=== PATIENT | male | born 1945 | race Caucasian/White ===

== ENCOUNTER 2019-08-13 15:38 | Observation (INO) | payer MEDICARE ==
[2019-08-13] MEDS ORDERED: SODIUM CHLORIDE 0.9% 500 ML 500 ML IV ONE (16:04)
--- NOTE | 2019-08-13 16:16 | ED ---
General Adult HPI - General Chief complaint: Altered Mental Status Stated complaint: altered mental status Time Seen by Provider: 08/13/19 15:50 Source: patient, RN notes reviewed, old records reviewed Mode of arrival: EMS Limitations: altered mental status - History of Present Illness Initial comments: 74-year-old male presents for evaluation of dizziness, lightheadedness, and confusion. Patient is alert and oriented 3, complaining of lightheadedness. States he has not been eating or drinking well. He currently lives alone, his is been admitted recently to the hospital. He denies fever. He denies vomiting or diarrhea. Denies pain complaints. Denies focal numbness or weakness. Patient is alert and oriented but he is somewhat confused,. Uncertain of the time course of his confusion. EMS reported it is likely been several days. - Related Data Home Medications Medication Instructions Recorded Confirmed Multivitamins, Thera [Multivitamin 1 tab PO DAILY 08/13/19 08/13/19 (formulary)] Pioglitazone HCl/Metformin HCl 1 tab PO DAILY 08/13/19 08/13/19 [Pioglitazone-Metformin 15-850] Pravastatin Sodium [Pravachol] 20 mg PO DAILY 08/13/19 08/13/19 Scopolamine [Scopolamine 1 MG/72 1 patch TOPICAL Q72H 08/13/19 08/13/19 HR patch] Allergies Allergy/AdvReac Type Severity Reaction Status Date / Time erythromycin base Allergy Verified 08/13/19 17:23 Sulfa (Sulfonamide Allergy Verified 08/13/19 17:23 Antibiotics) Review of Systems ROS Statement: Those systems with pertinent positive or pertinent negative responses have been documented in the HPI. ROS Other: All systems not noted in ROS Statement are negative. Past Medical History Past Medical History: Diabetes Mellitus History of Any Multi-Drug Resistant Organisms: None Reported Past Surgical History: Unable to Obtain Past Psychological History: No Psychological Hx Reported Smoking Status: Never smoker Past Alcohol Use History: None Reported Past Drug Use History: None Reported General Exam Limitations: altered mental status General appearance: alert, in no apparent distress Head exam: Present: atraumatic, normocephalic Eye exam: Present: normal appearance, PERRL ENT exam: Present: mucous membranes dry Neck exam: Present: normal inspection. Absent: tenderness, meningismus Respiratory exam: Present: normal lung sounds bilaterally. Absent: respiratory distress, wheezes, rales Cardiovascular Exam: Present: regular rate, normal rhythm GI/Abdominal exam: Present: soft. Absent: distended Extremities exam: Present: normal inspection, normal capillary refill. Absent: pedal edema Neurological exam: Present: alert, oriented X3, CN II-XII intact. Absent: motor sensory deficit Psychiatric exam: Present: normal affect, normal mood Skin exam: Present: warm, dry, intact. Absent: cyanosis, diaphoretic Course Vital Signs 08/13/19 08/13/19 15:47 17:00 Temperature 98.2 F Pulse Rate 96 90 Respiratory 18 18 Rate Blood Pressure 142/77 138/80 O2 Sat by Pulse 95 96 Oximetry - Reevaluation(s) Reevaluation #1: 08/13/19 18:22 I was able to speak with the patient's daughter who states he's been working in the yard a lot and has had some diarrhea. This may be contributing to his dehydration. EKG Findings - EKG Comments: EKG Findings:: EKG: Sinus rhythm with first-degree AV block, left axis, low voltage, rate of 95, WV interval 270, QRS duration 94, QTC 439, no ST segment elevation. Medical Decision Making - Medical Decision Making 74-year-old male with confusion, dehydration. Head CT showing concern for frontal dementia, no itch cream hemorrhage or mass effect per chest x-ray concerning for CHF and mild pulmonary vascular congestion, patient clinically has no peripheral edema, no shortness of breath, no hypoxia. He has a normal C BC, CMP shows elevated creatinine at 1.5 with no baseline. Magnesium is 1.5 this is replaced. Urinalysis negative for infection. Patient will be admitted for IV hydration, reevaluation. Case discussed with Dr. Donaldson who will admit. - Lab Data Result diagrams: 08/13/19 15:58 08/13/19 15:58 Lab Results 08/13/19 08/13/19 08/13/19 Range/Units 15:58 15:58 15:58 WBC 8.3 (3.8-10.6) k/uL RBC 4.78 (4.30-5.90) m/uL Hgb 15.5 (13.0-17.5) gm/dL Hct 46.6 (39.0-53.0) % MCV 97.5 (80.0-100.0) fL MCH 32.4 (25.0-35.0) pg MCHC 33.2 (31.0-37.0) g/dL RDW 13.8 (11.5-15.5) % Plt Count 152 (150-450) k/uL Neutrophils % 70 % Lymphocytes % 21 % Monocytes % 6 % Eosinophils % 2 % Basophils % 0 % Neutrophils # 5.8 (1.3-7.7) k/uL Lymphocytes # 1.7 (1.0-4.8) k/uL Monocytes # 0.5 (0-1.0) k/uL Eosinophils # 0.1 (0-0.7) k/uL Basophils # 0.0 (0-0.2) k/uL PT 10.1 (9.0-12.0) sec INR 1.0 (<1.2) APTT 22.7 (22.0-30.0) sec VBG pH (7.31-7.41) VBG pCO2 (37-51) mmHg VBG HCO3 (24-28) mmol/L Sodium 134 L (137-145) mmol/L Potassium 4.1 (3.5-5.1) mmol/L Chloride 102 (98-107) mmol/L Carbon Dioxide 20 L (22-30) mmol/L Anion Gap 12 mmol/L BUN 18 (9-20) mg/dL Creatinine 1.52 H (0.66-1.25) mg/dL Est GFR (CKD-EPI)AfAm 52 (>60 ml/min/1.73 sqM) Est GFR (CKD-EPI)NonAf 45 (>60 ml/min/1.73 sqM) Glucose 104 H (74-99) mg/dL Calcium 10.9 H (8.4-10.2) mg/dL Magnesium 1.5 L (1.6-2.3) mg/dL Total Bilirubin 1.0 (0.2-1.3) mg/dL AST 31 (17-59) U/L ALT 17 (4-49) U/L Alkaline Phosphatase 76 (38-126) U/L Creatine Kinase 109 (55-170) U/L Total Protein 7.4 (6.3-8.2) g/dL Albumin 4.5 (3.5-5.0) g/dL Urine Color Urine Appearance (Clear) Urine pH (5.0-8.0) Ur Specific Sel[place] (1.001-1.035) Urine Protein (Negative) Urine Glucose (UA) (Negative) Urine Ketones (Negative) Urine Blood (Negative) Urine Nitrite (Negative) Urine Bilirubin (Negative) Urine Urobilinogen (<2.0) mg/dL Ur Leukocyte Esterase (Negative) 08/13/19 08/13/19 Range/Units 15:58 17:10 WBC (3.8-10.6) k/uL RBC (4.30-5.90) m/uL Hgb (13.0-17.5) gm/dL Hct (39.0-53.0) % MCV (80.0-100.0) fL MCH (25.0-35.0) pg MCHC (31.0-37.0) g/dL RDW (11.5-15.5) % Plt Count (150-450) k/uL Neutrophils % % Lymphocytes % % Monocytes % % Eosinophils % % Basophils % % Neutrophils # (1.3-7.7) k/uL Lymphocytes # (1.0-4.8) k/uL Monocytes # (0-1.0) k/uL Eosinophils # (0-0.7) k/uL Basophils # (0-0.2) k/uL PT (9.0-12.0) sec INR (<1.2) APTT (22.0-30.0) sec VBG pH 7.43 H (7.31-7.41) VBG pCO2 34 L (37-51) mmHg VBG HCO3 23 L (24-28) mmol/L Sodium (137-145) mmol/L Potassium (3.5-5.1) mmol/L Chloride (98-107) mmol/L Carbon Dioxide (22-30) mmol/L Anion Gap mmol/L BUN (9-20) mg/dL Creatinine (0.66-1.25) mg/dL Est GFR (CKD-EPI)AfAm (>60 ml/min/1.73 sqM) Est GFR (CKD-EPI)NonAf (>60 ml/min/1.73 sqM) Glucose (74-99) mg/dL Calcium (8.4-10.2) mg/dL Magnesium (1.6-2.3) mg/dL Total Bilirubin (0.2-1.3) mg/dL AST (17-59) U/L ALT (4-49) U/L Alkaline Phosphatase (38-126) U/L Creatine Kinase (55-170) U/L Total Protein (6.3-8.2) g/dL Albumin (3.5-5.0) g/dL Urine Color Yellow Urine Appearance Clear (Clear) Urine pH 5.5 (5.0-8.0) Ur Specific [place] 1.008 (1.001-1.035) Urine Protein Trace H (Negative) Urine Glucose (UA) Negative (Negative) Urine Ketones Negative (Negative) Urine Blood Negative (Negative) Urine Nitrite Negative (Negative) Urine Bilirubin Negative (Negative) Urine Urobilinogen <2.0 (<2.0) mg/dL Ur Leukocyte Esterase Negative (Negative) Disposition Clinical Impression: Altered mental status, Delirium due to general medical condition, Dehydration Disposition: ADMITTED IP TO THIS [facility] Condition: Stable Is patient prescribed a controlled substance at d/c from ED?: No Referrals: None,Stated [REFERRING] - 1-2 days Decision to Admit Reason: Admit from EC Decision Date: 08/13/19 Decision Time: 18:23
[2019-08-13 16:32] LABS: VBG PH 7.43 (7.31-7.41)
[2019-08-13 16:33] LABS: Basophils % (A) 0 %; Eosinophils # (A) 0.1 k/uL (0-0.7); Eosinophils % (A) 2 %; HCT 46.6 % (39.0-53.0); HGB 15.5 gm/dL (13.0-17.5); Lymphocytes # (A) 1.7 k/uL (1.0-4.8); Lymphocytes % (A) 21 %; MCH 32.4 pg (25.0-35.0); MCHC 33.2 g/dL (31.0-37.0); MCV 97.5 fL (80.0-100.0); Mean Platelet Volume 7.2; Monocytes # (A) 0.5 k/uL (0-1.0); Monocytes % (A) 6 %; Neutrophils # (A) 5.8 k/uL (1.3-7.7); Neutrophils % (A) 70 %; Platelet Count 152 k/uL (150-450); RBC 4.78 m/uL (4.30-5.90); RDW 13.8 % (11.5-15.5); WBC 8.3 k/uL (3.8-10.6)
--- NOTE | 2019-08-13 16:50 | XR ---
EXAMINATION TYPE: XR chest 2V DATE OF EXAM: 08/13/2019 COMPARISON: NONE HISTORY: Altered mental status and weakness. TECHNIQUE: Frontal and lateral views of the chest are obtained. FINDINGS: There is chronic parenchymal changes bilaterally suspected without suspicious focal air sp dhaval opacity, pleural effusion, or pneumothorax seen. The cardiac silhouette size is mildly enlarged. Spine is straightened on lateral view. IMPRESSION: Cardiomegaly with suspected chronic parenchymal changes. Cannot exclude mild underlying interstitial edema. Correlate clinically for fluid overload state and/or CHF exacerbation
[2019-08-13 16:51] LABS: Partial Thromboplastin Time 22.7 sec (22.0-30.0); Prothrombin Time 10.1 sec (9.0-12.0)
--- NOTE | 2019-08-13 16:52 | CT ---
EXAMINATION TYPE: CT brain wo con DATE OF EXAM: 08/13/2019 HISTORY: Altered mental status. CT DLP: 1099.4 mGycm. Automated Exposure Control for Dose Reduction was Utilized. TECHNIQUE: CT scan of the head is performed without contrast. COMPARISON: None. FINDINGS: There is no acute intracranial hemorrhage or midline shift identified. There is diffuse v entricular and sulcal prominence consistent with diffuse cerebral atrophy greatest over bilateral fro ntal and temporal lobes. There is low-attenuation in the periventricular white matter consistent wit h chronic small vessel ischemic change. The globes are intact and the visualized sinuses are clear. Persistent anterior metopic suture incidentally noted. IMPRESSION: No acute intracranial hemorrhage or midline shift. There is moderate diffuse cerebral a trophy greatest over bilateral frontal and temporal lobes and mild chronic small vessel ischemic bauman ge noted. Correlate for possible frontal temporal dementia.
[2019-08-13 17:16] LABS: Albumin 4.5 g/dL (3.5-5.0); Calcium 10.9 mg/dL (8.4-10.2); Magnesium 1.5 mg/dL (1.6-2.3); Potassium 4.1 mmol/L (3.5-5.1); Total Protein 7.4 g/dL (6.3-8.2)
[2019-08-13 17:49] LABS: Appearance,Urine Clear (Clear); Bilirubin,Urine Negative (Negative); Blood,Urine Negative (Negative); Color,Urine Yellow; Glucose,Urine (UA) Negative (Negative); Ketones,Urine Negative (Negative); Leukocyte Esterase,Urine Negative (Negative); Nitrite,Urine Negative (Negative); PH, Urine 5.5 (5.0-8.0); Protein,Urine Trace (Negative); Specific Gravity,Urine 1.008 (1.001-1.035); Urobilinogen,Urine <2.0 mg/dL (<2.0)
[2019-08-13] MEDS ORDERED: MAGNESIUM SULFATE-D5W PMX 1 GM in DEXTROSE/WATER 1 100ML.BAG IVPB ONE (18:02)
[2019-08-13] MEDS ORDERED: NALOXONE 0.4 MG/ML 1 ML VIAL IV PRN (18:21)
[2019-08-13] MEDS ORDERED: ACETAMINOPHEN TAB 325 MG TAB PO PRN (18:21)
[2019-08-13] MEDS: SODIUM CHLORIDE 0.9% 1,000 ML IV SCH (19:19)
[2019-08-13] MEDS ORDERED: cloNIDine HCL 0.2 MG TAB PO PRN (19:55)
[2019-08-13 21:43] LABS: Glucose,Whole Blood 153 mg/dL (75-99)
[2019-08-13] MEDS: INSULIN ASPART (NovoLOG) 100 UNIT/ML VIAL SQ SCH (22:20)
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
[2019-08-14] MEDS: ASPIRIN 81 MG PO SCH ×2 (01:06→09:39)
[2019-08-14] MEDS: HEPARIN SODIUM,PORCINE 5,000 UNIT/ML 1 ML VIAL SQ SCH ×4 (01:06→23:45)
[2019-08-14] MEDS: TAMSULOSIN 0.4 MG CAP.ER.24H PO SCH ×2 (01:06→19:39)
[2019-08-14] MEDS: SODIUM CHLORIDE 0.9% 1,000 ML IV SCH ×3 (06:51→23:46)
[2019-08-14 07:05] LABS: Glucose,Whole Blood 109 mg/dL (75-99)
[2019-08-14 07:14] LABS: Basophils % (A) 1 %; Eosinophils # (A) 0.2 k/uL (0-0.7); Eosinophils % (A) 2 %; HCT 46.4 % (39.0-53.0); HGB 14.9 gm/dL (13.0-17.5); Lymphocytes # (A) 1.8 k/uL (1.0-4.8); Lymphocytes % (A) 23 %; MCH 31.8 pg (25.0-35.0); MCV 99.5 fL (80.0-100.0); Macrocytosis Slight; Mean Platelet Volume 6.9; Monocytes # (A) 0.4 k/uL (0-1.0); Monocytes % (A) 5 %; Neutrophils # (A) 5.4 k/uL (1.3-7.7); Neutrophils % (A) 69 %; Platelet Count 148 k/uL (150-450); RBC 4.66 m/uL (4.30-5.90); WBC 7.8 k/uL (3.8-10.6)
[2019-08-14 07:19] LABS: Calcium 9.8 mg/dL (8.4-10.2); Magnesium 1.7 mg/dL (1.6-2.3); Potassium 4.3 mmol/L (3.5-5.1)
[2019-08-14] MEDS: INSULIN ASPART (NovoLOG) 100 UNIT/ML VIAL SQ SCH ×4 (07:22→21:46)
--- NOTE | 2019-08-14 08:10 | US ---
EXAMINATION TYPE: US carotid duplex BILAT DATE OF EXAM: 08/14/2019 COMPARISON: NONE CLINICAL HISTORY: 74-year-old male Confusion TECHNIQUE: Carotid duplex ultrasound examination. Direct Doppler criteria was utilized. FINDINGS: EXAM MEASUREMENTS: RIGHT: Peak Systolic Velocity (PSV) cm/sec ----- Right CCA: 72.4 ----- Right ICA: 91.1 ----- Right ECA: 81.4 ICA/CCA ratio: 1.3 RIGHT: End Diastole cm/sec ----- Right CCA: 14.2 ----- Right ICA: 27.4 ----- Right ECA: 0.0 LEFT: Peak Systolic Velocity (PSV) cm/sec ----- Left CCA: 87.9 ----- Left ICA: 67.1 ----- Left ECA: 117.7 ICA/CCA ratio: 0.8 LEFT: End Diastole cm/sec ----- Left CCA: 10.2 ----- Left ICA: 14.7 ----- Left ECA: 6.3 VERTEBRALS (direction of flow): Right Vertebral: Antegrade Left Vertebral: Antegrade Anesthesiologist/Physician notes: No significant stenosis seen IMPRESSION: No hemodynamically significant internal carotid artery stenosis on either side. Criteria for Assigning % of Stenosis / Diameter reduction (Estimation based on the indirect measurements of the internal carotid artery velocities (ICA PSV). 1. Normal (no stenosis)=ICA PSV < 125 cm/s: ratio < 2.0: ICA EDV<40 cm/s. 2. Less than 50% stenosis=ICA PSV < 125 cm/s: ratio < 2.0: ICA EDV<40 cm/s. 3. 50 to 69% stenosis=ICA PSV of 125 to 230 cm/s: ration 2.0 ? 4.0: ICA EDV 40-100 cm/s. 4. Greater than 70% stenosis to near occlusion= ICA PSV > 230 cm/s: ratio > 4.0: ICA EDV > 100 cm/s. 5. Near occlusion= ICA PSV velocities may be low or undetectable: variable ratio and ICA EDV. 6. Total occlusion=unable to detect flow.
[2019-08-14] MEDS: PRAVASTATIN SODIUM 20 MG TAB PO SCH (09:39)
--- NOTE | 2019-08-14 11:00 | ECHOF ---
Referral Reason:r/o thrombi, confusion , vascular dementia MEASUREMENTS -------- HEIGHT: 170.2 cm WEIGHT: 85.3 kg BP: 132/71 RVIDd: 3.1 cm (< 3.3) IVSd: 1.5 cm (0.6 - 1.1) LVIDd: 3.7 cm (3.9 - 5.3) LVPWd: 1.5 cm (0.6 - 1.1) IVSs: 1.8 cm LVIDs: 2.4 cm LVPWs: 2.1 cm LA Diam: 3.4 cm (2.7 - 3.8) LAESV Index (A-L): 16.80 ml/m Ao Diam: 3.5 cm (2.0 - 3.7) AV Cusp: 2.4 cm (1.5 - 2.6) MV EXCURSION: 16.312 mm (> 18.000) MV EF SLOPE: 166 mm/s (70 - 150) EPSS: 0.3 cm MV E Prieto: 0.76 m/s MV DecT: 176 ms MV A Prieto: 1.18 m/s MV E/A Ratio: 0.64 FINDINGS -------- This was a technically good study. The left ventricular size is normal. There is moderate concentric left ventricular hypertrophy. O verall left ventricular systolic function is normal with, an EF between 60 - 65 %. The right ventricle is normal in size. Normal LA size by volume 22+/-6 ml/m2. The right atrium is normal in size. Interatrial and interventricular septum intact. There is mild aortic valve sclerosis. Mild mitral annular calcification present. No regurgitation noted The pulmonic valve is normal. The aortic root size is normal. Normal inferior vena cava with normal inspiratory collapse consistent with estimated right atrial pre ssure of 5 mmHg. There is no pericardial effusion. CONCLUSIONS -------- 1. This was a technically good study. 2. The left ventricular size is normal. 3. There is moderate concentric left ventricular hypertrophy. 4. Overall left ventricular systolic function is normal with, an EF between 60 - 65 %. 5. The right ventricle is normal in size. 6. Normal LA size by volume 22+/-6 ml/m2. 7. The right atrium is normal in size. 8. Interatrial and interventricular septum intact. 9. There is mild aortic valve sclerosis. 10. Mild mitral annular calcification present. 11. No regurgitation noted 12. The pulmonic valve is normal. 13. The aortic root size is normal. 14. Normal inferior vena cava with normal inspiratory collapse consistent with estimated right atrial pressure of 5 mmHg. 15. There is no pericardial effusion. TAPE SEWING MACHINE OPERATOR: Rachel Grimaldo RDCS
--- NOTE | 2019-08-14 12:11 | MR ---
EXAMINATION TYPE: MR brain wo con DATE OF EXAM: 08/14/2019 COMPARISON: CT brain from yesterday. HISTORY: Confusion , altered mental status on admission one day earlier. Question vascular dementia. TECHNIQUE: Multiplanar, multisequence imaging of the brain and brainstem is performed without IV cont rast. FINDINGS: Diffusion weighted images demonstrate no evidence of a recent infarct or other diffusion abnormality. There is no worrisome extra-axial fluid collection. There is diffuse ventricular and sulcal prominenc e redemonstrated. Findings redemonstrated is slightly more prominent over bilateral frontal lobes. So me areas of T2 hyperintensity in the periventricular white matter are noted. Midline structures demonstrate normal morphology. The craniocervical junction appears within normal limits. Normal vascular flow voids are present. The visualized sinuses are clear and the globes are i ntact. IMPRESSION: 1. No MRI evidence for recent infarct. 2. Fairly moderate diffuse cerebral atrophy slightly more prominent over bilateral frontal lobes with mild chronic small vessel ischemic change is redemonstrated.
[2019-08-14 12:31] LABS: Glucose,Whole Blood 112 mg/dL (75-99)
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
[2019-08-14 17:04] LABS: Glucose,Whole Blood 127 mg/dL (75-99)
[2019-08-14 20:12] LABS: Glucose,Whole Blood 133 mg/dL (75-99)
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
[2019-08-15 07:02] LABS: Glucose,Whole Blood 111 mg/dL (75-99)
[2019-08-15] MEDS: INSULIN ASPART (NovoLOG) 100 UNIT/ML VIAL SQ SCH ×4 (07:15→21:17)
[2019-08-15] MEDS: ASPIRIN 81 MG PO SCH (08:09)
[2019-08-15] MEDS: SODIUM CHLORIDE 0.9% 1,000 ML IV SCH ×2 (08:09→21:18)
[2019-08-15] MEDS: HEPARIN SODIUM,PORCINE 5,000 UNIT/ML 1 ML VIAL SQ SCH ×3 (08:09→23:35)
[2019-08-15] MEDS: PRAVASTATIN SODIUM 20 MG TAB PO SCH (08:09)
[2019-08-15 08:15] LABS: HCT 41.6 % (39.0-53.0); HGB 14.2 gm/dL (13.0-17.5); MCH 34.1 pg (25.0-35.0); MCV 100.2 fL (80.0-100.0); Macrocytosis Slight; Mean Platelet Volume 7.5; Platelet Count 141 k/uL (150-450); RBC 4.16 m/uL (4.30-5.90); WBC 7.1 k/uL (3.8-10.6)
[2019-08-15 08:20] LABS: Calcium 9.2 mg/dL (8.4-10.2); Magnesium 1.5 mg/dL (1.6-2.3)
[2019-08-15] MEDS: MAGNESIUM SULFATE-D5W PMX 1 GM in DEXTROSE/WATER 1 100ML.BAG IVPB SCH ×4 (10:13→15:23)
[2019-08-15 11:52] LABS: Lead, Blood 1.1 ug/dL (<5.0)
[2019-08-15 11:58] LABS: Glucose,Whole Blood 133 mg/dL (75-99)
--- NOTE | 2019-08-15 12:54 | P.PN ---
Subjective Progress Note Date: 08/15/19 Patient offers no new complaints. Still with some fluctuating mental status. Sometimes more oriented sometimes not. Offers no complaints. Objective - Vital Signs Vital signs: Vital Signs Temp 97.7 F 08/15/19 07:31 Pulse 80 08/15/19 07:31 Resp 16 08/15/19 07:31 BP 147/76 08/15/19 07:31 Pulse Ox 94 L 08/15/19 07:31 Intake & Output 08/14/19 08/15/19 08/15/19 18:59 06:59 18:59 Intake Total 2089 Balance 2089 Intake: Intake, IV Titration 900 Amount Sodium Chloride 0.9% 1, 900 000 ml @ 120 mls/hr IV . Q8H20M [facility] Rx#:[id number] Oral 1190 Other: Voiding Method Bedside Commode # Voids 2 1 - Exam Patient is alert and awake, well oriented. Patient knows it is July 2019 and that he is in [facility] in [facility]. Patient had difficulty recalling name of the [place] has to be prompted. Speech and language functions are normal. Rest of the examination is nonfocal. - Labs CBC & Chem 7: 08/15/19 06:38 08/15/19 06:38 Labs: Abnormal Lab Results - Last 24 Hours (Table) 08/14/19 08/14/19 08/15/19 Range/Units 16:52 20:11 06:38 RBC 4.16 L (4.30-5.90) m/uL MCV 100.2 H (80.0-100.0) fL Plt Count 141 L (150-450) k/uL Chloride (98-107) mmol/L Creatinine (0.66-1.25) mg/dL Glucose (74-99) mg/dL POC Glucose (mg/dL) 127 H 133 H (75-99) mg/dL Magnesium (1.6-2.3) mg/dL 08/15/19 08/15/19 08/15/19 Range/Units 06:38 06:59 11:56 RBC (4.30-5.90) m/uL MCV (80.0-100.0) fL Plt Count (150-450) k/uL Chloride 111 H (98-107) mmol/L Creatinine 1.26 H (0.66-1.25) mg/dL Glucose 116 H (74-99) mg/dL POC Glucose (mg/dL) 111 H 133 H (75-99) mg/dL Magnesium 1.5 L (1.6-2.3) mg/dL Assessment and Plan Assessment: * Altered mental status, likely due to delirium, now resolved. Patient's mentation appears fairly intact at this time. Apparently patient has received scopolamine patch on 08/12/2019, and altered mental status occurred on 08/13/2019. No evidence of prior cognitive impairment. * Diabetes Plan: * Patient's examination is nonfocal. All neurological workup is negative. * Patient's TSH is normal 2.99, B12 389. Serum lead is normal. Await serum mercury and arsenic, and carbon monoxide level. * Patient's delirium was likely related to use of scopolamine patch, which patient states was given to "enhance the effect of hearing". Scopolamine patch was removed late evening on 08/13/2019. * May follow up with neurologist as an outpatient, only if there is persistent concerns about memory disturbance. * Neurologically clear for discharge, when medically cleared.
--- NOTE | 2019-08-15 14:32 | P.PN ---
Subjective Progress Note Date: 08/15/19 Principal diagnosis: altered mentation Patient is a 74 yo CM with DM on oral medications well controlled, HTN and mild COPD who was brought in by EMS for altered mentation. In the emergency department he underwent an extensive evaluation. Initial vitals were stable. CXR mild interstitial edema, Head CT with cerebral atrophy in bilateral frontal and temporal lobes and mild chronic small vessel ischemic changes. Labs showed elevated Cr, Hypercalcemia, and hypomagnesemia he was started on IVF and magnesium replacement. He was placed in observation for further monitoring. Echo: normal EF, moderate LVH, no significant valvular disease Carotids US: no hemodynamically significant stenosis MRI: fairly moderate diffuse cerebral atrophy more prominent over bilateral frontal lobes with chronic small vessel ischemic changes He continues to be confused and unable to answer high level function. He also is impulsive and has had a sitter overnight. Patient seen and examined at bedside. He states that he is feeling well. Denies any chest pain, shortness of breath, nausea, and vomiting. Objective - Vital Signs Vital signs: Vital Signs Temp 97.7 F 08/15/19 07:31 Pulse 80 08/15/19 07:31 Resp 16 08/15/19 07:31 BP 147/76 08/15/19 07:31 Pulse Ox 94 L 08/15/19 07:31 Intake & Output 08/14/19 08/15/19 08/15/19 18:59 06:59 18:59 Intake Total 2089 Balance 2089 Intake: Intake, IV Titration 900 Amount Sodium Chloride 0.9% 1, 900 000 ml @ 120 mls/hr IV . Q8H20M [facility] Rx#:[id number] Oral 1190 Other: Voiding Method Bedside Commode # Voids 2 1 - Exam General: non toxic, no distress, appears at stated age Derm: warm, dry Head: atraumatic, normocephalic, symmetric Eyes: EOMI, no lid lag, anicteric sclera Mouth: no lip lesion, mucus membranes moist Cardiovascular: S1S2 reg, no murmur, positive posterior tibial pulse bilateral, Lungs: Decreased bs bilateral, no rhonchi, no rales , no accessory muscle use Abdominal: soft, nontender to palpation, no guarding, no appreciable organomegaly Ext: no gross muscle atrophy, no edema, no contractures Neuro: CN II-XI grossly intact, no focal neuro deficits Psych: Alert, oriented, overly happy/ expressive Oriented to person, place, year, month, gets confused and answer year to being asked the date. He is able to follow commands, unable to follow along with continued conversation and stay on topic, also answers questions amado ppropriately. - Labs CBC & Chem 7: 08/15/19 06:38 08/15/19 06:38 Labs: Abnormal Lab Results - Last 24 Hours (Table) 08/14/19 08/14/19 08/14/19 Range/Units 12:19 16:52 20:11 RBC (4.30-5.90) m/uL MCV (80.0-100.0) fL Plt Count (150-450) k/uL Chloride (98-107) mmol/L Creatinine (0.66-1.25) mg/dL Glucose (74-99) mg/dL POC Glucose (mg/dL) 112 H 127 H 133 H (75-99) mg/dL Magnesium (1.6-2.3) mg/dL 08/15/19 08/15/19 08/15/19 Range/Units 06:38 06:38 06:59 RBC 4.16 L (4.30-5.90) m/uL MCV 100.2 H (80.0-100.0) fL Plt Count 141 L (150-450) k/uL Chloride 111 H (98-107) mmol/L Creatinine 1.26 H (0.66-1.25) mg/dL Glucose 116 H (74-99) mg/dL POC Glucose (mg/dL) 111 H (75-99) mg/dL Magnesium 1.5 L (1.6-2.3) mg/dL Assessment and Plan Assessment: Acute toxic metabolic encephalopthy - hold scopolamine patch - Echo: normal EF, moderate LVH, no significant valvular disease - Carotids US: no hemodynamically significant stenosis - MRI: fairly moderate diffuse cerebral atrophy more prominent over bilateral frontal lobes with chronic small vessel ischemic changes - D/W neurology - Lead, arsnic, mercury, CO levels are pending - B12, TSH normal - supportive care, Social work consult saw daughter - will need outpatient neurology follow up - pt/ot/ speech evaluation - Of note the patient has been taking numerous amounts of over the counter supplements Hypomagnesemia - replace and recheck in AM DM 2 - Hold metformin/pioglitazone - SSI - Follow BS - Check A1C HLD - statin COPD without exacerbation - prn albuterol Intentional weight loss Hypomagnesemia, resolved hypercalcemia, resolved ALBERTO, mostly likely prerenal due to dehydration, improved DVT prophylaxis: Heparin SC Discussed with: Patient, nursing, daughter, Dr. Pool Anticipated discharge: in AM Anticipated discharge place: home with home health A total of 60 minutes was spent on the care of this complex patient more than 50% of the time was spent in counseling and care coordination.
[2019-08-15 16:58] LABS: Glucose,Whole Blood 149 mg/dL (75-99)
[2019-08-15] MEDS: TAMSULOSIN 0.4 MG CAP.ER.24H PO SCH (18:31)
[2019-08-15 20:54] LABS: Glucose,Whole Blood 105 mg/dL (75-99)
[2019-08-16] MEDS: SODIUM CHLORIDE 0.9% 1,000 ML IV SCH ×2 (03:03→10:22)
[2019-08-16 07:49] LABS: Glucose,Whole Blood 110 mg/dL (75-99)
[2019-08-16] MEDS: INSULIN ASPART (NovoLOG) 100 UNIT/ML VIAL SQ SCH ×2 (08:31→11:43)
[2019-08-16 09:07] LABS: Calcium 8.7 mg/dL (8.4-10.2); Magnesium 1.8 mg/dL (1.6-2.3); Potassium 3.7 mmol/L (3.5-5.1)
[2019-08-16] MEDS: ASPIRIN 81 MG PO SCH (10:21)
[2019-08-16] MEDS: HEPARIN SODIUM,PORCINE 5,000 UNIT/ML 1 ML VIAL SQ SCH (10:21)
[2019-08-16] MEDS: PRAVASTATIN SODIUM 20 MG TAB PO SCH (10:21)
[2019-08-16] MEDS ORDERED: Magnesium Replacement Protocol 1 EACH MISC MISCELLANE PRN (11:00)
[2019-08-16] MEDS: MAGNESIUM SULFATE-D5W PMX 1 GM in DEXTROSE/WATER 1 100ML.BAG IVPB SCH ×2 (11:35→13:15)
[2019-08-16 11:45] LABS: Glucose,Whole Blood 105 mg/dL (75-99)
--- NOTE | 2019-08-16 14:23 | P.DS ---
Providers Date of admission: 08/14/19 11:39 Expected date of discharge: 08/16/19 Attending physician: Zenia Donaldson, DO Consults: 08/13/19 19:56 Consult Physician Routine Consulting Provider: Janna Pool Consult Reason/Comments: ams Do you want consulting provider notified?: Yes, Notify in am Primary care physician: Adam Damian [facility] Course: 74 year old male with hypertension and DM who was brought in by his daughter because of worsening confusion. According to his daughter he was not acting like himself, was not making sense of what he was saying and was tangential in his thoughts. On the day of admission patient spent all his morning working on the yard. Reportedly he did not keep himself hydrated. He reported feeling unsteady and dizzy when he stands up. No weakness. No pain or sob. Of note patient was prescribed scopolamine patch to help with his peripheral neuropathy by his PCP. In the ED, CT brain showed no acute pathology, but suggestive of chornic small vessel disease. labs showed elevated creatinine, (no baseline) and low magnesium. He was started on IV fluids for presumed dehydration and the magnesium was replaced. During the hospitalization he underwent extensive workup including MRI of the brain, carotid Doppler and echocardiogram and all of those studies came back unremarkable. Labs including vitamin B12 and lead levels were normal. Heavy metal screen workup including arsenic level, mercury level was pending at the time of this reporting. He was seen by neurology who thought that chronic dementia component might be contributing to the acute worsening mental status induced by scopolamine. Scopolamine patch was discontinued upon admission his mental status did improve towards his baseline. Today he is doing fine. He will be discharged home in stable condition. I instructed patient not to use scopolamine patch in the future. He was also instructed to follow up with neurology in the office. Time for discharge 35 minutes. Patient Condition at Discharge: Stable Plan - Discharge Summary Discharge Rx Participant: Yes New Discharge Prescriptions: Continue Pravastatin Sodium [Pravachol] 20 mg PO DAILY Multivitamins, Thera [Multivitamin (formulary)] 1 tab PO DAILY Pioglitazone HCl/Metformin HCl [Pioglitazone-Metformin 15-850] 1 tab PO DAILY Discontinued Scopolamine [Scopolamine 1 MG/72 HR patch] 1 patch TOPICAL Q72H Discharge Medication List Multivitamins, Thera [Multivitamin (formulary)] 1 tab PO DAILY 08/13/19 [History] Pioglitazone HCl/Metformin HCl [Pioglitazone-Metformin 15850] 1 tab PO DAILY 08/13/19 [History] Pravastatin Sodium [Pravachol] 20 mg PO DAILY 08/13/19 [History] Follow up Appointment(s)/Referral(s): [facility], [NON-STAFF] - None,Stated [REFERRING] - 1-2 days Ibrahima Sotelo DO [STAFF PHYSICIAN] - 1 Week (office closed at time of discharge. Please call to make appointment)
[2019-08-16 14:48] VITALS: BP 146/82; PULSE 91; RESP 18; TEMP 98.2
[2019-08-16 23:02] LABS: Hemoglobin A1C 6.1 % (4.0-6.0)
[2019-08-17 09:38] LABS: Arsenic Whole Blood <3 mcg/L (< 23); Mercury Whole Blood <2 mcg/L (< 11)
== END 2019-08-16 15:20 | disposition home health service (06) ==
LOC: EC 15:38 → 4SSUR 18:21 → OBSVTOIN 08-14 11:39 → INTOOBSV 08-14 11:39 → UNDODISIN 08-16 15:20
PROVIDERS: ADMIT Internal Medicine; ATTEND Internal Medicine
DX: G92 Toxic encephalopathy (principal); E83.42 Hypomagnesemia; E11.42 Type 2 diabetes mellitus with diabetic polyneuropathy; E78.5 Hyperlipidemia, unspecified; J44.9 Chronic obstructive pulmonary disease, unspecified; I67.82 Cerebral ischemia; N17.9 Acute kidney failure, unspecified; E83.52 Hypercalcemia; E86.0 Dehydration; R19.7 Diarrhea, unspecified; F43.10 Post-traumatic stress disorder, unspecified; J84.89 Other specified interstitial pulmonary diseases; G31.9 Degenerative disease of nervous system, unspecified; I44.0 Atrioventricular block, first degree; I11.9 Hypertensive heart disease without heart failure; E66.9 Obesity, unspecified; Z68.29 Body mass index [BMI] 29.0-29.9, adult; Z03.818 Encounter for observation for suspected exposure to other biological agents ruled out; Z79.82 Long term (current) use of aspirin; Z79.899 Other long term (current) drug therapy; Z88.1 Allergy status to other antibiotic agents; Z88.2 Allergy status to sulfonamides; Z98.890 Other specified postprocedural states; Z87.39 Personal history of other diseases of the musculoskeletal system and connective tissue; Z87.891 Personal history of nicotine dependence; Z81.8 Family history of other mental and behavioral disorders
CPT/HCPCS: 96361 ×4; 96366 ×2; 96372 ×3; 96365; 99285; 36415; 93005; 93306; 97162; 97166; 92523; 80053; 80048 ×3; 82607; 82375; 82550; 82803; 83655; 83735 ×4; 84443; 85025 ×2; 85027; 85610; 85730; 81003; 82175; 83825; 86780; 83036; 71046; 93880; 70450; 70551; G0378 ×4; U0003; J1644 ×3; J3475 ×3; 96360

== ENCOUNTER → 2019-08-20 | Outpatient (CLI) | payer MEDICARE ==
--- NOTE | 2019-08-20 14:43 | US ---
EXAMINATION TYPE: US venous doppler duplex LE DATE OF EXAM: 08/20/2019 2:30 PM COMPARISON: NONE CLINICAL HISTORY: R60.0 EDEMA. Left knee pain SIDE PERFORMED: Bilateral TECHNIQUE: The lower extremity deep venous system is examined utilizing real time linear array sonog genaro with graded compression, doppler sonography and color-flow sonography. VESSELS IMAGED: External Iliac Vein (EIV) Common Femoral Vein Deep Femoral Vein Greater Saphenous Vein * Femoral Vein Popliteal Vein Small Saphenous Vein * Proximal Calf Veins (* superficial vessels) Right Leg: Negative for DVT Left Leg: Negative for DVT In the left pop fossa, there is an anechoic area visualized measuring 2.7 x 1.4 x 3.1 cm IMPRESSION: No evidence for DVT at this time.
== END | disposition home or self-care (01) ==
LOC: RADUSWWP 14:01
PROVIDERS: ATTEND Family Medicine
DX: R60.0 Localized edema (principal)
CPT/HCPCS: 93970

== ENCOUNTER → 2019-12-30 | Outpatient (CLI) | payer MEDICARE ==
[2019-12-30 16:23] LABS: Folate, Serum >24.0 ng/mL
[2019-12-30 17:19] LABS: Calcium 10.3 mg/dL (8.7-10.3); Creatine Kinase 60 U/L (35-257); Magnesium 1.7 mg/dL (1.5-2.4)
[2019-12-31 12:58] LABS: Albumin 3.96 g/dL (3.80-4.90); Gamma Globulin 0.84 g/dL (0.70-1.50)
[2020-01-01 05:57] LABS: Vit B1(Thiamine) 139 ug/L (38-122)
== END | disposition home or self-care (01) ==
LOC: LABWHC1 08:51
PROVIDERS: ATTEND Psychiatry & Neurology Pain Medicine
DX: G89.4 Chronic pain syndrome (principal); Z79.899 Other long term (current) drug therapy
CPT/HCPCS: 36415; 82306; 82310; 82550; 82607; 82746; 83036; 83519; 83735; 84165; 84207; 84425; 84439; 84443; 84446; 84481; 84590; 84591; 84597

== ENCOUNTER 2020-10-28 14:34 | Inpatient (IN) | payer MEDICARE ==
[2020-10-28 15:18] LABS: Basophils % (A) 0 %; Eosinophils # (A) 0.5 k/uL (0-0.7); Eosinophils % (A) 5 %; HCT 43.6 % (39.0-53.0); Lymphocytes # (A) 1.1 k/uL (1.0-4.8); Lymphocytes % (A) 11 %; MCH 33.3 pg (25.0-35.0); MCHC 34.4 g/dL (31.0-37.0); MCV 96.6 fL (80.0-100.0); Mean Platelet Volume 6.9; Monocytes # (A) 0.5 k/uL (0-1.0); Monocytes % (A) 5 %; Neutrophils # (A) 7.2 k/uL (1.3-7.7); Neutrophils % (A) 77 %; Platelet Count 251 k/uL (150-450); RBC 4.51 m/uL (4.30-5.90); RDW 14.5 % (11.5-15.5); WBC 9.4 k/uL (3.8-10.6)
--- NOTE | 2020-10-28 15:19 | ED ---
General Adult HPI - General Chief complaint: Shortness of Breath Stated complaint: PEGGY Time Seen by Provider: 10/28/20 14:49 Source: patient, EMS Mode of arrival: EMS Limitations: no limitations - History of Present Illness Initial comments: Dictation was produced using [employer] dictation software. please excuse any grammatical, word or spelling errors. Chief Complaint: 75-year-old male presents with hypoxia and shortness of breath History of Present Illness: 75-year-old male who was sent here from the urgent care for shortness of breath times several weeks, cough and hypoxia. Patient states he feels fine at the bedside. Over the last couple weeks she's been having some dyspnea. Denies any pain complaints. He has been having cough productive of white sputum. He has history of COPD tobacco use. Denies any history of heart issues. Patient allegedly was hypoxic at the urgent care and to the 80 percents. EMS was called patient is brought to the emergency department. Patient was placed on nonrebreather by EMS with improvement of his oxygen. He feels fine at the bedside. Denies any leg swelling. No history of DVT or PE. The ROS documented in this emergency department record has been reviewed and confirmed by me. Those systems with pertinent positive or negative responses have been documented in the HPI. All other systems are other negative and/or noncontributory. PHYSICAL EXAM: General Impression: Alert and oriented x3, not in acute distress HEENT: Normocephalic atraumatic, extra-ocular movements intact, pupils equal and reactive to light bilaterally, mucous membranes moist. Cardiovascular: Heart regular rate and rhythm Chest: Able to complete full sentences, no retractions, no tachypnea, lungs c lear to auscultation bilaterally Abdomen: abdomen soft, non-tender, non-distended, no organomegaly Musculoskeletal: Pulses present and equal in all extremities, no peripheral edema Motor: no focal deficits noted Neurological: CN II-XII grossly intact, no focal motor or sensory deficits noted Skin: Intact with no visualized rashes Psych: Normal affect and mood ED course: 75-year-old male presents emergency department for several days of shortness of breath and alleged hypoxia at the urgent care. Vital signs upon arrival shows findings within acceptable limits. He is 91% on 2 L nasal cannula . He is well-appearing at the bedside. He has no pain complaints. No clinical exam findings to suggest pulmonary embolism. EKG interpretation: Ventricular rate 86, sinus tachycardia, appears to be evidence of heart block. P waves march out and regular intervals appeared to QRS complexes. Concerning for A-V dissociation. Laboratory evaluation obtained per it CBC unremarkable. Blood gas shows pH is 7.5 with pCO2 of 28 pO2 of 81 bicarb of 21. Metabolic panel shows slightly e levated renal markers. Lactic acidosis 3.2, troponin 0.041. Brain natruretic peptide is 1720. Rotavirus negative. Chest x-ray concerning for acute edema versus infiltrate. Patient observed in the emergency department for approximately 2 hours and 30 minutes. Patient reevaluated at bedside at 4:50 PM. He is well-appearing. No complaints of chest pain. States that he feels a little short winded. This concern that patient's elevated troponin is from acute kidney injury versus troponin leak. There is concern of heart failure. Patient given 40 mg of by mouth Lasix. He is well-appearing. His clinical presentation does not suggest acute coronary syndrome. Patient will be admitted with consultation to cardiology. Discussed patient case with [facility] group was willing to accept patients care. - Related Data Home Medications Medication Instructions Recorded Confirmed Multivitamins, Thera [Multivitamin 1 tab PO DAILY 08/13/19 10/28/20 (formulary)] Pioglitazone HCl/Metformin HCl 1 tab PO BID 08/13/19 10/28/20 [Pioglitazone-Metformin 15-132] Albuterol Inhaler [Ventolin Hfa 2 puff INHALATION RT-Q4H PRN 10/28/20 10/28/20 Inhaler] Allergies Allergy/AdvReac Type Severity Reaction Status Date / Time Sulfa (Sulfonamide Allergy Severe Anaphylaxis Verified 10/28/20 14:41 Antibiotics) erythromycin base Allergy Unknown Unknown Verified 10/28/20 14:41 Mushroom Allergy Anaphylaxis Verified 10/28/20 14:41 Review of Systems ROS Statement: Those systems with pertinent positive or pertinent negative responses have been documented in the HPI. ROS Other: All systems not noted in ROS Statement are negative. Past Medical History Past Medical History: COPD, Diabetes Mellitus, Hypertension Additional Past Medical History / Comment(s): Neuropathy History of Any Multi-Drug Resistant Organisms: None Reported Past Surgical History: Orthopedic Surgery Additional Past Surgical History / Comment(s): Right Rotator Cuff repair Past Anesthesia/Blood Transfusion Reactions: No Reported Reaction Past Psychological History: PTSD Smoking Status: Former smoker Past Alcohol Use History: None Reported Past Drug Use History: None Reported - Past Family History family Additional Family Medical History / Comment(s): Alzheimer General Exam Limitations: no limitations Course Vital Signs 10/28/20 10/28/20 14:41 14:51 Pulse Rate 86 Respiratory 18 Rate Blood Pressure 136/102 O2 Sat by Pulse 91 L 91 L Oximetry Medical Decision Making - Lab Data Result diagrams: 10/28/20 14:59 10/28/20 14:59 Lab Results 10/28/20 10/28/20 10/28/20 Range/Units 14:59 14:59 14:59 WBC 9.4 (3.8-10.6) k/uL RBC 4.51 (4.30-5.90) m/uL Hgb 15.0 (13.0-17.5) gm/dL Hct 43.6 (39.0-53.0) % MCV 96.6 (80.0-100.0) fL MCH 33.3 (25.0-35.0) pg MCHC 34.4 (31.0-37.0) g/dL RDW 14.5 (11.5-15.5) % Plt Count 251 (150-450) k/uL MPV 6.9 Neutrophils % 77 % Lymphocytes % 11 % Monocytes % 5 % Eosinophils % 5 % Basophils % 0 % Neutrophils # 7.2 (1.3-7.7) k/uL Lymphocytes # 1.1 (1.0-4.8) k/uL Monocytes # 0.5 (0-1.0) k/uL Eosinophils # 0.5 (0-0.7) k/uL Basophils # 0.0 (0-0.2) k/uL Sample Site ABG pH (7.35-7.45) ABG pCO2 (35-45) mmHg ABG pO2 (83-108) mmHg ABG HCO3 (21-25) mmol/L ABG Total CO2 (19-24) mmol/L ABG O2 Saturation (94-97) % ABG Base Excess mmol/L Wayne Test FiO2 % Sodium 133 L (137-145) mmol/L Potassium 4.3 (3.5-5.1) mmol/L Chloride 99 (98-107) mmol/L Carbon Dioxide 20 L (22-30) mmol/L Anion Gap 14 mmol/L BUN 32 H (9-20) mg/dL Creatinine 1.88 H (0.66-1.25) mg/dL Est GFR (CKD-EPI)AfAm 40 (>60 ml/min/1.73 sqM) Est GFR (CKD-EPI)NonAf 34 (>60 ml/min/1.73 sqM) Glucose 125 H (74-99) mg/dL Plasma Lactic Acid Eddie (0.7-2.0) mmol/L Calcium 13.0 H (8.4-10.2) mg/dL Troponin I (0.000-0.034) ng/mL NT-Pro-B Natriuret Pep pg/mL Coronavirus (PCR) Not Detected (Not Detectd) Blood Type Blood Type Recheck Bld Type Recheck Status Antibody Screen Spec Expiration Date 10/28/20 10/28/20 10/28/20 Range/Units 14:59 14:59 14:59 WBC (3.8-10.6) k/uL RBC (4.30-5.90) m/uL Hgb (13.0-17.5) gm/dL Hct (39.0-53.0) % MCV (80.0-100.0) fL MCH (25.0-35.0) pg MCHC (31.0-37.0) g/dL RDW (11.5-15.5) % Plt Count (150-450) k/uL MPV Neutrophils % % Lymphocytes % % Monocytes % % Eosinophils % % Basophils % % Neutrophils # (1.3-7.7) k/uL Lymphocytes # (1.0-4.8) k/uL Monocytes # (0-1.0) k/uL Eosinophils # (0-0.7) k/uL Basophils # (0-0.2) k/uL Sample Site ABG pH (7.35-7.45) ABG pCO2 (35-45) mmHg ABG pO2 (83-108) mmHg ABG HCO3 (21-25) mmol/L ABG Total CO2 (19-24) mmol/L ABG O2 Saturation (94-97) % ABG Base Excess mmol/L Wayne Test FiO2 % Sodium (137-145) mmol/L Potassium (3.5-5.1) mmol/L Chloride (98-107) mmol/L Carbon Dioxide (22-30) mmol/L Anion Gap mmol/L BUN (9-20) mg/dL Creatinine (0.66-1.25) mg/dL Est GFR (CKD-EPI)AfAm (>60 ml/min/1.73 sqM) Est GFR (CKD-EPI)NonAf (>60 ml/min/1.73 sqM) Glucose (74-99) mg/dL Plasma Lactic Acid Eddie 3.2 H* (0.7-2.0) mmol/L Calcium (8.4-10.2) mg/dL Troponin I 0.041 H* (0.000-0.034) ng/mL NT-Pro-B Natriuret Pep 1720 pg/mL Coronavirus (PCR) (Not Detectd) Blood Type Blood Type Recheck Bld Type Recheck Status Antibody Screen Spec Expiration Date 10/28/20 10/28/20 Range/Units 14:59 15:22 WBC (3.8-10.6) k/uL RBC (4.30-5.90) m/uL Hgb (13.0-17.5) gm/dL Hct (39.0-53.0) % MCV (80.0-100.0) fL MCH (25.0-35.0) pg MCHC (31.0-37.0) g/dL RDW (11.5-15.5) % Plt Count (150-450) k/uL MPV Neutrophils % % Lymphocytes % % Monocytes % % Eosinophils % % Basophils % % Neutrophils # (1.3-7.7) k/uL Lymphocytes # (1.0-4.8) k/uL Monocytes # (0-1.0) k/uL Eosinophils # (0-0.7) k/uL Basophils # (0-0.2) k/uL Sample Site r brach ABG pH 7.50 H (7.35-7.45) ABG pCO2 28 L (35-45) mmHg ABG pO2 81 L (83-108) mmHg ABG HCO3 21 (21-25) mmol/L ABG Total CO2 22 (19-24) mmol/L ABG O2 Saturation 97.1 H (94-97) % ABG Base Excess -2.1 mmol/L Wayne Test na FiO2 36 % Sodium (137-145) mmol/L Potassium (3.5-5.1) mmol/L Chloride (98-107) mmol/L Carbon Dioxide (22-30) mmol/L Anion Gap mmol/L BUN (9-20) mg/dL Creatinine (0.66-1.25) mg/dL Est GFR (CKD-EPI)AfAm (>60 ml/min/1.73 sqM) Est GFR (CKD-EPI)NonAf (>60 ml/min/1.73 sqM) Glucose (74-99) mg/dL Plasma Lactic Acid Eddie (0.7-2.0) mmol/L Calcium (8.4-10.2) mg/dL Troponin I (0.000-0.034) ng/mL NT-Pro-B Natriuret Pep pg/mL Coronavirus (PCR) (Not Detectd) Blood Type O Positive Blood Type Recheck No Previous Record Bld Type Recheck Status CABO Indicated Antibody Screen NEGATIVE Spec Expiration Date 10/31/2020 - 2358 Disposition Clinical Impression: Heart failure, Dyspnea Disposition: ADMITTED IP TO THIS [facility] Condition: Fair Referrals: Adam Roberto MD [Primary Care Provider] - 1-2 days
[2020-10-28 15:26] LABS: Potassium 4.3 mmol/L (3.5-5.1)
[2020-10-28 15:35] LABS: ABG Base Excess -2.1 mmol/L; ABG HCO3 21 mmol/L (21-25); ABG Oxygen Saturation 97.1 % (94-97); ABG PCO2 28 mmHg (35-45); ABG PO2 81 mmHg (83-108); ABG TCO2 22 mmol/L (19-24)
--- NOTE | 2020-10-28 15:39 | XR ---
EXAMINATION TYPE: XR chest 1V portable DATE OF EXAM: 10/28/2020 COMPARISON: Prior chest x-ray August 13, 2019 HISTORY: COPD with shortness of breath TECHNIQUE: Single AP portable frontal upright view of the chest is obtained. FINDINGS: The osseous structures remain demineralized. Heart size stable and upper limits of normal with atherosclerotic and ectatic aorta. Reticular and reticulonodular interstitial changes bilaterall y redemonstrated with overall multifocal areas of increased opacity felt present bilaterally. No new pleural effusion or pneumothorax seen. IMPRESSION: Suspect bilateral multifocal areas of acute edema and/or infiltrate on background chroni c parenchymal changes, correlate clinically to exclude covid-19 infection in current environment.
[2020-10-28] MEDS ORDERED: FUROSEMIDE 40 MG TAB PO STA (16:45)
[2020-10-28] MEDS ORDERED: ASPIRIN 81 MG PO STA (16:48)
[2020-10-28] MEDS ORDERED: oxyCODONE-APAP 5-325MG 1 EACH TAB PO PRN (18:31)
[2020-10-28] MEDS ORDERED: ACETAMINOPHEN TAB 325 MG TAB PO PRN (18:31)
[2020-10-28] MEDS ORDERED: MELATONIN 3 MG TABLET PO PRN (18:31)
[2020-10-28] MEDS ORDERED: NALOXONE 0.4 MG/ML 1 ML VIAL IV PRN (18:31)
[2020-10-28] MEDS ORDERED: HEPARIN SODIUM 1,000 UN/ML (10ML VL) IV PRN (18:38)
[2020-10-28] MEDS ORDERED: HEPARIN SODIUM 1,000 UN/ML (10ML VL) IV ONE (18:38)
[2020-10-28] MEDS ORDERED: SODIUM CHLORIDE 0.9% 1,000 ML IV ONE (19:01)
--- NOTE | 2020-10-28 19:21 | P.HPIM ---
<Frantz Weinstein - Last Filed: 10/28/20 18:38> History of Present Illness H&P Date: 10/28/20 History of Presenting Illness: Patient is a very pleasant 75-year-old male with a past medical history of COPD non-oxygen dependent, type II dfu-rflwaeh-bxagepeqf diabetes mellitus, hyperte nsion, and diabetic neuropathy. Patient presented to the emergency department with a chief complaint of shortness of breath. Patient states he has had progressively worsening shortness of breath over the past month accompanied by a productive cough with yellow phlegm. Patient denies being seen by a physician for this complaint. States it started off with just shortness of breath upon ambulation walking to and from the bathroom and simple activities of daily living and has now progressed to shortness of breath at rest, while sitting up and while lying down. Patient states cough has been persistent of yellow phlegm. He reports receiving both of his Covid 19 vaccinations as well as his pneumonia vaccination. He denies having any fevers, chills, headache, lightheadedness, dizziness, chest pain or palpitations, abdominal pain, nausea, vomiting, or experiencing any changes in or difficulties with his urinary or bowel function, or experiencing any swelling/weakness/numbness in his extr emities. Patient reports that he follows with Dr. Roberto as his primary care provider and last saw him about 4 or 5 months ago. 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 He reports history of cigarette smoking but states he quit greater than 12 years ago. Patient was seen and fully evaluated in the emergency department. Per ED documentation, patient was hypoxic requiring oxygen supplementation and is currently on 3 L O2 with SpO2 of 91%. EKG was completed showing sinus rhythm at 86 bpm with a Mobitz type I AV block with occasional PVCs, This is a new finding when compared to EKG completed 08/13/2019. Troponin Elevated 0.041. ProBNP 1720. Chest x-ray showing suspected bilateral multifocal areas of acute edema and/or infiltrate on background chronic parenchymal changes. Covid 19 PCR negative. ABG revealing respiratory alkalosis with pH 7.50, pCO2 28, and pO2 81. Lactic acid elevated at 3.2. Mild hyponatremia also present with sodium of 133 and an acute kidney injury with BUN 32, creatinine 1.88, and GFR of 34 with baseline creatinine of 1.2. Patient admitted under our services with consultation to cardiology. Review of systems: Pertinent positives and negatives as discussed in HPI, a complete review of systems was performed and all other systems are negative. Physical exam: Vital signs reviewed and stable. General: Nontoxic, no distress and appears stated age. Derm: Skin warm and dry, normal coloration for ethnicity. Head: Atraumatic, normocephalic and symmetric. Eyes: EOMs intact, no lid lag, and anicteric sclera Mouth: no lip lesions, mucus membranes dry. Missing teeth. Cardiovascular: regular rate and rhythm with normal S1S2, no murmur, positive posterior tibial pulses bilaterally, and cap refill < 2 seconds. Lungs: Respirations even, regular, and unlabored on 3 L O2 via nasal cannula with SpO2 of 90%. Lungs with diffuse soft rhonchi, no wheezes noted.. Abdominal: soft, nontender to palpation, no guarding, no appreciable organomegaly Ext: ROM intact. No gross muscle atrophy, no edema, no contractures Neuro: Speech clear, face symmetrical and CN II-XII grossly intact with no noted focal neuro deficits Psych: Alert and oriented to person, place, time, and situation. Appropriate and pleasant affect. Assessment and Plan of Care: Acute respiratory alkalosis Shortness of breath Elevated troponin, NSTEMI EKG changes - EKG was completed showing sinus rhythm at 86 bpm with a Mobitz type I AV block with occasional PVCs, This is a new finding when compared to EKG completed 08/13/2019. -Chest x-ray showing suspected bilateral multifocal areas of acute edema and/or infiltrate on background chronic parenchymal changes. Covid 19 PCR negative. -ABG revealing respiratory alkalosis with pH 7.50, pCO2 28, and pO2 81. -Cardiology consult -Oxygenation to be provided as needed to maintain SpO2 equal to or greater than 92%. -Echocardiogram (Previous echocardiogram completed 08/14/19 revealed a normal EF between 60 and 65% with no significant valvular abnormalities.) -Telemetry monitoring -Initial troponin elevated at 0.041, will trend troponins. -Heparin infusion per ACS protocol for NSTEMI -ProBNP 1720 -Daily weights -Close monitoring of I's and O's -Cardiac diet -Nothing by mouth at midnight -Daily Aspirin, atorvastatin, and metoprolol -Lipid profile and Hgb A1c with a.m. labs. Lactic acidosis -Lactate 3.2. -Patient appears dry. Fluid bolus given. -We will repeat lactate and place further orders as needed. Acute kidney injury -Acute kidney injury with BUN 32, creatinine 1.88, and GFR of 34 with baseline creatinine of 1.2. -Fluid bolus being given. -We will continue to monitor with repeat a.m. labs. Type II twn-lgykiju-hxjafbunf diabetes mellitus. -Hold Glucophage in place patient on glycemic protocol with NovoLog sliding scale. The patient is admitted with an anticipated greater than 2 midnight stay for evaluation of NSTEMI and acute respiratory failure with hypoxia. CODE STATUS: Full code DVT prophylaxis: Heparin Discussed with: Patient and RN Anticipated discharge date: Clinical course to determine Anticipated discharge place: Home A total of 45 minutes was spent on the care of this complex patient more than 50% of the time was spent in counseling and care coordination. Past Medical History Past Medical History: COPD, Diabetes Mellitus, Hypertension Additional Past Medical History / Comment(s): Neuropathy History of Any Multi-Drug Resistant Organisms: None Reported Past Surgical History: Orthopedic Surgery Additional Past Surgical History / Comment(s): Right Rotator Cuff repair Past Anesthesia/Blood Transfusion Reactions: No Reported Reaction Past Psychological History: PTSD Smoking Status: Former smoker Past Alcohol Use History: None Reported Past Drug Use History: None Reported - Past Family History family Additional Family Medical History / Comment(s): Alzheimer Medications and Allergies Home Medications Medication Instructions Recorded Confirmed Type Multivitamins, Thera [Multivitamin 1 tab PO DAILY 08/13/19 10/28/20 History (formulary)] Pioglitazone HCl/Metformin HCl 1 tab PO BID 08/13/19 10/28/20 History [Pioglitazone-Metformin 15-850] Albuterol Inhaler [Ventolin Hfa 2 puff INHALATION RT-Q4H PRN 10/28/20 10/28/20 History Inhaler] Allergies Allergy/AdvReac Type Severity Reaction Status Date / Time Sulfa (Sulfonamide Allergy Severe Anaphylaxis Verified 10/28/20 14:41 Antibiotics) erythromycin base Allergy Unknown Unknown Verified 10/28/20 14:41 Mushroom Allergy Anaphylaxis Verified 10/28/20 14:41 Physical Exam Vitals: Vital Signs Pulse Resp BP Pulse Ox 10/28/20 14:51 91 L 10/28/20 14:41 86 18 136/102 91 L Intake and Output 10/28/20 10/28/20 10/28/20 06:59 14:59 22:59 Other: Weight 78.018 kg Results CBC & Chem 7: 10/28/20 14:59 10/28/20 14:59 Labs: Abnormal Lab Results - Last 24 Hours (Table) 10/28/20 10/28/20 10/28/20 Range/Units 14:59 14:59 14:59 ABG pH (7.35-7.45) ABG pCO2 (35-45) mmHg ABG pO2 (83-108) mmHg ABG O2 Saturation (94-97) % Sodium 133 L (137-145) mmol/L Carbon Dioxide 20 L (22-30) mmol/L BUN 32 H (9-20) mg/dL Creatinine 1.88 H (0.66-1.25) mg/dL Glucose 125 H (74-99) mg/dL Plasma Lactic Acid Eddie 3.2 H* (0.7-2.0) mmol/L Calcium 13.0 H (8.4-10.2) mg/dL Troponin I 0.041 H* (0.000-0.034) ng/mL 10/28/20 Range/Units 15:22 ABG pH 7.50 H (7.35-7.45) ABG pCO2 28 L (35-45) mmHg ABG pO2 81 L (83-108) mmHg ABG O2 Saturation 97.1 H (94-97) % Sodium (137-145) mmol/L Carbon Dioxide (22-30) mmol/L BUN (9-20) mg/dL Creatinine (0.66-1.25) mg/dL Glucose (74-99) mg/dL Plasma Lactic Acid Eddie (0.7-2.0) mmol/L Calcium (8.4-10.2) mg/dL Troponin I (0.000-0.034) ng/mL <Zenia Donaldson - Last Filed: 10/28/20 19:44> History of Present Illness Patient seen and examined independently. Patient was also seen by Frantz Weinstein NP and case was discussed. I am in agreement with subjective, physical exam, assessment and plan as written above and amended below. Complains of shortness of breath that is worse with exertion and better at rest. Denies any current chest pain. Concern for possible cardiac etiology of his dyspnea. Patient does not appear to be in congestive heart failure with chest x-ray relatively unchanged since July 2019, BNP is acceptable range for age, and no signs of lower extremity edema. He does have an abnormal EKG with possible Mobitz Type I. Start Heparin gtt with elevated Troponin, Check stat D-dimer. General: non toxic, no distress, appears at stated age Derm: warm, dry Head: atraumatic, normocephalic, symmetric Eyes: EOMI, no lid lag, anicteric sclera Mouth: no lip lesion, mucus membranes moist Cardiovascular: S1S2 reg, no murmur, positive posterior tibial pulse bilateral, Lungs: Coarse breath sounds bilateral, no rhonchi, no rales , no accessory muscle use Abdominal: soft, nontender to palpation, no guarding, no appreciable organomegaly Ext: no gross muscle atrophy, no edema, no contractures Neuro: CN II-XI grossly intact, no focal neuro deficits Psych: Alert, oriented, appropriate affect Physical Exam Osteopathic Statement: *. No significant issues noted on an osteopathic structural exam other than those noted in the History and Physical/Consult. Vitals: Vital Signs Pulse Resp BP Pulse Ox 10/28/20 19:23 101 H 22 111/70 10/28/20 14:51 91 L 10/28/20 14:41 86 18 136/102 91 L Intake and Output 10/28/20 10/28/20 10/28/20 06:59 14:59 22:59 Other: Weight 78.018 kg Results CBC & Chem 7: 10/28/20 14:59 10/28/20 14:59 Labs: Abnormal Lab Results - Last 24 Hours (Table) 10/28/20 10/28/20 10/28/20 Range/Units 14:59 14:59 14:59 ABG pH (7.35-7.45) ABG pCO2 (35-45) mmHg ABG pO2 (83-108) mmHg ABG O2 Saturation (94-97) % Sodium 133 L (137-145) mmol/L Carbon Dioxide 20 L (22-30) mmol/L BUN 32 H (9-20) mg/dL Creatinine 1.88 H (0.66-1.25) mg/dL Glucose 125 H (74-99) mg/dL Plasma Lactic Acid Eddie 3.2 H* (0.7-2.0) mmol/L Calcium 13.0 H (8.4-10.2) mg/dL Troponin I 0.041 H* (0.000-0.034) ng/mL 10/28/20 Range/Units 15:22 ABG pH 7.50 H (7.35-7.45) ABG pCO2 28 L (35-45) mmHg ABG pO2 81 L (83-108) mmHg ABG O2 Saturation 97.1 H (94-97) % Sodium (137-145) mmol/L Carbon Dioxide (22-30) mmol/L BUN (9-20) mg/dL Creatinine (0.66-1.25) mg/dL Glucose (74-99) mg/dL Plasma Lactic Acid Eddie (0.7-2.0) mmol/L Calcium (8.4-10.2) mg/dL Troponin I (0.000-0.034) ng/mL
[2020-10-28] MEDS: HEPARIN SOD,PORK IN 0.45% NACL 25,000 UNIT in 0.45% NACL 1 250ML.BAG IV SCH (19:37)
[2020-10-28 19:48] LABS: INR 0.9 (<1.2); Partial Thromboplastin Time 24.3 sec (22.0-30.0); Prothrombin Time 10.2 sec (9.0-12.0)
[2020-10-28 20:48] LABS: Glucose,Whole Blood 109 mg/dL (75-99)
[2020-10-28] MEDS: INSULIN ASPART (NovoLOG) 100 UNIT/ML VIAL SQ SCH (21:11)
[2020-10-28] MEDS: METOPROLOL TARTRATE 25 MG TAB PO SCH (21:11)
[2020-10-29 06:10] LABS: Glucose,Whole Blood 98 mg/dL (75-99)
[2020-10-29] MEDS: INSULIN ASPART (NovoLOG) 100 UNIT/ML VIAL SQ SCH ×4 (06:21→20:39)
[2020-10-29 07:20] LABS: Albumin 3.7 g/dL (3.5-5.0); Calcium 11.9 mg/dL (8.4-10.2); Magnesium 1.5 mg/dL (1.6-2.3); Potassium 4.4 mmol/L (3.5-5.1); Total Bilirubin 0.6 mg/dL (0.2-1.3); Total Protein 6.4 g/dL (6.3-8.2)
[2020-10-29 07:25] LABS: Partial Thromboplastin Time 33.9 sec (22.0-30.0); Prothrombin Time 10.3 sec (9.0-12.0)
[2020-10-29 07:33] LABS: Basophils % (A) 0 %; Eosinophils # (A) 0.5 k/uL (0-0.7); Eosinophils % (A) 5 %; HGB 14.1 gm/dL (13.0-17.5); Lymphocytes # (A) 0.9 k/uL (1.0-4.8); Lymphocytes % (A) 9 %; MCH 32.9 pg (25.0-35.0); MCHC 34.3 g/dL (31.0-37.0); MCV 95.9 fL (80.0-100.0); Monocytes # (A) 0.4 k/uL (0-1.0); Monocytes % (A) 4 %; Neutrophils # (A) 7.9 k/uL (1.3-7.7); Neutrophils % (A) 80 %; Platelet Count 242 k/uL (150-450); RBC 4.28 m/uL (4.30-5.90); RDW 14.5 % (11.5-15.5); WBC 9.9 k/uL (3.8-10.6)
[2020-10-29] MEDS: MAGNESIUM SULFATE-D5W PMX 1 GM in DEXTROSE/WATER 1 100ML.BAG IVPB SCH ×3 (08:59→11:43)
[2020-10-29] MEDS ORDERED: FUROSEMIDE 40 MG TAB PO SCH (09:00)
[2020-10-29] MEDS: METOPROLOL TARTRATE 25 MG TAB PO SCH (09:01)
[2020-10-29] MEDS: ASPIRIN 81 MG PO SCH (09:01)
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
[2020-10-29] MEDS: SODIUM CHLORIDE 0.9% 1,000 ML IV SCH ×2 (09:51→20:44)
[2020-10-29 10:59] VITALS: BMI 26.3
--- NOTE | 2020-10-29 11:34 | P.PN ---
<Frantz Weinstein - Last Filed: 10/29/20 16:45> Subjective Progress Note Date: 10/29/20 History of Presenting Illness: Patient is a very pleasant 75-year-old male with a past medical history of COPD non-oxygen dependent, type II [id number] diabetes mellitus, hypertension, and diabetic neuropathy. Patient presented to the emergency department with a chief complaint of shortness of breath. Patient states he has had progressively worsening shortness of breath over the past month accompanied by a productive cough with yellow phlegm. Patient denies being seen by a y sician for this complaint. States it started off with just shortness of breath upon ambulation walking to and from the bathroom and simple activities of daily living and has now progressed to shortness of breath at rest, while sitting up and while lying down. Patient states cough has been persistent of yellow phlegm. He reports receiving both of his Covid 19 vaccinations as well as his pneumonia vaccination. Patient reports that he follows with Dr. Roberto as his primary care provider and last saw him about 4 or 5 months ago. 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 He reports history of cigarette smoking but states he quit greater than 12 years ago. Patient was seen and fully evaluated in the emergency department. Per ED documentation, patient was hypoxic requiring oxygen supplementation and is currently on 3 L O2 with SpO2 of 91%. EKG was completed showing sinus rhythm at 86 bpm with a Mobitz type I AV block with occasional PVCs, This is a new finding when compared to EKG completed 08/13/2019. Troponin Elevated 0.041 .and 0.043. ProBNP 1720. Chest x-ray showing suspected bilateral multifocal areas of acute edema and/or infiltrate on background chronic parenchymal changes. Covid 19 PCR negative. ABG revealing respiratory alkalosis with pH 7.50, pCO2 28, and pO2 81. Lactic acid elevated at 3.2. Mild hyponatremia also present with sodium of 133 and an acute kidney injury with BUN 32, creatinine 1.88, and GFR of 34 with baseline creatinine of 1.2. Patient admitted under our services with consultation to cardiology. 10/29/20: Patient seen and fully evaluated at the bedside this morning. He reports that shortness of breath has improved. He remains on heparin infusion at this time. Renal function is slowly improving, we will continue with IV hydration. Troponin did come back down as initial troponin was 0.041 followed by 0.043 with last troponin of 0.028. Patient was found to have hypomagnesemia with magnesium of 1.5, order placed for 3 g magnesium IVPB. Patient denies having any headache, lightheadedness, chest pain, palpitations, nausea, or any other complaints at this time. Discussed plan of care with cardiology, we will continue with gentle hydration secondary to elevated creatinine prior to patient's tentative plan to undergo cardiac catheterization tomorrow a.m. Physical exam: Vital signs reviewed and stable. General: Nontoxic, no distress and appears stated age. Derm: Skin warm and dry, normal coloration for ethnicity. Head: Atraumatic, normocephalic and symmetric. Eyes: EOMs intact, no lid lag, and anicteric sclera Mouth: no lip lesions, mucus membranes dry. Missing teeth. Cardiovascular: regular rate and rhythm with normal S1S2, no murmur, positive posterior tibial pulses bilaterally, and cap refill < 2 seconds. Lungs: Respirations even, regular, and unlabored on 3 L O2 via nasal cannula with SpO2 of 90%. Lungs diminished. No rhonchi, wheezes, rales, or crackles noted today. Abdominal: soft, nontender to palpation, no guarding, no appreciable organomegaly Ext: ROM intact. No gross muscle atrophy, no edema, no contractures Neuro: Speech clear, face symmetrical and CN II-XII grossly intact with no noted focal neuro deficits Psych: Alert and oriented to person, place, time, and situation. Appropriate and pleasant affect. Assessment and Plan of Care: NSTEMI EKG changes Acute systolic CHF with EF 40-45% - EKG was completed showing sinus rhythm at 86 bpm with a Mobitz type I AV block with occasional PVCs, This is a new finding when compared to EKG completed 08/13/2019 which revealed normal sinus rhythm with a first-degree AV block. -Cardiology following, plans for tentative cardiac cath tomorrow a.m. -Echocardiogram revealing a mild to moderately impaired EF 40-45% with hypokinesis throughout inferioseptal and inferolateral left ventricular wall. This has changed from most recent echocardiogram completed 08/14/19 which revealed a normal EF between 60 and 65%. -Continuous Telemetry monitoring -Continuation of Heparin infusion per ACS protocol for NSTEMI, pharmacy to dose -ProBNP 1720 -Nothing by mouth at midnight, tentative plans for cardiac cath tomorrow a.m. -Daily Aspirin and atorvastatin. -Lipid profile with a.m. labs -Hgb A1c 5.7% Acute respiratory alkalosis Shortness of breath -Likely resulting from ACS with acute systolic CHF -ABG revealing respiratory alkalosis with pH 7.50, pCO2 28, and pO2 81. -Chest x-ray showing suspected bilateral multifocal areas of acute edema and/or infiltrate on background chronic parenchymal changes. -Covid 19 PCR negative. -Continue Oxygenation as needed to maintain SpO2 equal to or greater than 92%. Acute kidney injury -Continued hydration with IV fluids -We will continue to monitor renal function closely with repeat a.m. labs. -Hold nephrotoxic medications. Lactic acidosis, resolved with fluid bolus Hypomagnesemia -Magnesium 1.5, replaced. -Will continue to monitor with repeat a.m. labs and replace abnormal electrolyte values as needed. Type II [id number]-rijufaaav diabetes mellitus. -Hold Glucophage in place patient on glycemic protocol with NovoLog sliding scale. CODE STATUS: Full code DVT prophylaxis: Heparin Discussed with: Patient and RN Anticipated discharge date: Clinical course to determine Anticipated discharge place: Home A total of 45 minutes was spent on the care of this complex patient more than 50% of the time was spent in counseling and care coordination. Objective - Vital Signs Vital signs: Vital Signs Temp 97.2 F L 10/29/20 08:00 Pulse 89 10/29/20 08:00 Resp 18 10/29/20 08:00 BP 141/73 10/29/20 08:00 Pulse Ox 92 L 10/29/20 08:00 Intake & Output 10/28/20 10/29/20 10/29/20 18:59 06:59 18:59 Intake Total 305.763 Output Total 589879 325 Balance -755355 -19.237 Weight 78.018 kg 76.2 kg 76.2 kg Intake: Intake, IV Titration 125.763 Amount Heparin Sod,Pork in 0.45% 125.763 NaCl 25,000 unit In 0.45 % NaCl 1 250ml.bag @ 12 UNITS/KG/HR 9.362 mls/hr IV .Q24H [facility] Rx#: [id number] Oral 180 Output: Urine 1875 325 Straight 700 Post Void Residual [id number] Other: Voiding Method Indwelling Catheter Indwelling Catheter - Labs CBC & Chem 7: 10/29/20 06:54 10/29/20 06:54 Labs: Abnormal Lab Results - Last 24 Hours (Table) 10/28/20 10/28/20 10/28/20 Range/Units 14:59 14:59 14:59 RBC (4.30-5.90) m/uL Neutrophils # (1.3-7.7) k/uL Lymphocytes # (1.0-4.8) k/uL APTT (22.0-30.0) sec D-Dimer (<0.60) mg/L FEU ABG pH (7.35-7.45) ABG pCO2 (35-45) mmHg ABG pO2 (83-108) mmHg ABG O2 Saturation (94-97) % Sodium 133 L (137-145) mmol/L Carbon Dioxide 20 L (22-30) mmol/L BUN 32 H (9-20) mg/dL Creatinine 1.88 H (0.66-1.25) mg/dL Glucose 125 H (74-99) mg/dL POC Glucose (mg/dL) (75-99) mg/dL Plasma Lactic Acid Eddie 3.2 H* (0.7-2.0) mmol/L Calcium 13.0 H (8.4-10.2) mg/dL Magnesium (1.6-2.3) mg/dL Troponin I 0.041 H* (0.000-0.034) ng/mL 10/28/20 10/28/20 10/28/20 Range/Units 15:22 19:01 19:01 RBC (4.30-5.90) m/uL Neutrophils # (1.3-7.7) k/uL Lymphocytes # (1.0-4.8) k/uL APTT (22.0-30.0) sec D-Dimer 1.09 H (<0.60) mg/L FEU ABG pH 7.50 H (7.35-7.45) ABG pCO2 28 L (35-45) mmHg ABG pO2 81 L (83-108) mmHg ABG O2 Saturation 97.1 H (94-97) % Sodium (137-145) mmol/L Carbon Dioxide (22-30) mmol/L BUN (9-20) mg/dL Creatinine (0.66-1.25) mg/dL Glucose (74-99) mg/dL POC Glucose (mg/dL) (75-99) mg/dL Plasma Lactic Acid Eddie (0.7-2.0) mmol/L Calcium (8.4-10.2) mg/dL Magnesium (1.6-2.3) mg/dL Troponin I 0.043 H* (0.000-0.034) ng/mL 10/28/20 10/29/20 10/29/20 Range/Units 20:44 00:09 06:54 RBC 4.28 L (4.30-5.90) m/uL Neutrophils # 7.9 H (1.3-7.7) k/uL Lymphocytes # 0.9 L (1.0-4.8) k/uL APTT 44.4 H (22.0-30.0) sec D-Dimer (<0.60) mg/L FEU ABG pH (7.35-7.45) ABG pCO2 (35-45) mmHg ABG pO2 (83-108) mmHg ABG O2 Saturation (94-97) % Sodium (137-145) mmol/L Carbon Dioxide (22-30) mmol/L BUN (9-20) mg/dL Creatinine (0.66-1.25) mg/dL Glucose (74-99) mg/dL POC Glucose (mg/dL) 109 H (75-99) mg/dL Plasma Lactic Acid Eddie (0.7-2.0) mmol/L Calcium (8.4-10.2) mg/dL Magnesium (1.6-2.3) mg/dL Troponin I (0.000-0.034) ng/mL 10/29/20 10/29/20 Range/Units 06:54 06:54 RBC (4.30-5.90) m/uL Neutrophils # (1.3-7.7) k/uL Lymphocytes # (1.0-4.8) k/uL APTT 33.9 H (22.0-30.0) sec D-Dimer (<0.60) mg/L FEU ABG pH (7.35-7.45) ABG pCO2 (35-45) mmHg ABG pO2 (83-108) mmHg ABG O2 Saturation (94-97) % Sodium 134 L (137-145) mmol/L Carbon Dioxide (22-30) mmol/L BUN 32 H (9-20) mg/dL Creatinine 1.81 H (0.66-1.25) mg/dL Glucose 118 H (74-99) mg/dL POC Glucose (mg/dL) (75-99) mg/dL Plasma Lactic Acid Eddie (0.7-2.0) mmol/L Calcium 11.9 H (8.4-10.2) mg/dL Magnesium 1.5 L (1.6-2.3) mg/dL Troponin I (0.000-0.034) ng/mL <Zenia Donaldson - Last Filed: 10/29/20 19:00> Subjective Patient seen and examined independently. Patient was also seen by Frantz Weinsteni NP and case was discussed. I am in agreement with subjective, physical exam, assessment and plan as written above and amended below. Still having some shortness of breath up and ambulating, feels tired at stated in half, states his appetite is slightly better today than it has been. Hypercalcemia -Improving with IV fluids -Continue to monitor -Suspect secondary to dehydration but may need workup for secondary causes of hypercalcemia does not improve General: non toxic, no distress, appears at stated age Derm: warm, dry Head: atraumatic, normocephalic, symmetric Eyes: EOMI, no lid lag, anicteric sclera Mouth: no lip lesion, mucus membranes moist Cardiovascular: S1S2 reg, no murmur, positive posterior tibial pulse bilateral, Lungs: CTA bilateral, no rhonchi, no rales , no accessory muscle use Abdominal: soft, nontender to palpation, no guarding, no appreciable organomegaly Ext: no gross muscle atrophy, no edema, no contractures Neuro: CN II-XI grossly intact, no focal neuro deficits Psych: Alert, oriented, appropriate affect Objective - Vital Signs Vital signs: Vital Signs Temp 97.6 F 10/29/20 15: Pulse 80 10/29/20 15:21 Resp 19 10/29/20 15:21 BP 132/71 10/29/20 15:21 Pulse Ox 91 L 10/29/20 15:21 Intake & Output 10/28/20 10/29/20 10/29/20 18:59 06:59 18:59 Intake Total 827.774 Output Total 080701 325 Balance -530826 502.774 Weight 78.018 kg 76.2 kg 76.2 kg Intake: Intake, IV Titration 227.774 Amount Heparin Sod,Pork in 0.45% 227.774 NaCl 25,000 unit In 0.45 % NaCl 1 250ml.bag @ 12 UNITS/KG/HR 9.362 mls/hr IV .Q24H [facility] Rx#: [id number] Oral 600 Output: Urine 1875 325 Straight 700 Post Void Residual [id number] Other: Voiding Method Indwelling Catheter Indwelling Catheter - Labs CBC & Chem 7: 10/29/20 06:54 10/29/20 06:54 Labs: Abnormal Lab Results - Last 24 Hours (Table) 10/28/20 10/28/20 10/28/20 Range/Units 19:01 19:01 20:44 RBC (4.30-5.90) m/uL Neutrophils # (1.3-7.7) k/uL Lymphocytes # (1.0-4.8) k/uL APTT (22.0-30.0) sec D-Dimer 1.09 H (<0.60) mg/L FEU Sodium (137-145) mmol/L BUN (9-20) mg/dL Creatinine (0.66-1.25) mg/dL Glucose (74-99) mg/dL POC Glucose (mg/dL) 109 H (75-99) mg/dL Calcium (8.4-10.2) mg/dL Magnesium (1.6-2.3) mg/dL Troponin I 0.043 H* (0.000-0.034) ng/mL 10/29/20 10/29/20 10/29/20 Range/Units 00:09 06:54 06:54 RBC 4.28 L (4.30-5.90) m/uL Neutrophils # 7.9 H (1.3-7.7) k/uL Lymphocytes # 0.9 L (1.0-4.8) k/uL APTT 44.4 H (22.0-30.0) sec D-Dimer (<0.60) mg/L FEU Sodium 134 L (137-145) mmol/L BUN 32 H (9-20) mg/dL Creatinine 1.81 H (0.66-1.25) mg/dL Glucose 118 H (74-99) mg/dL POC Glucose (mg/dL) (75-99) mg/dL Calcium 11.9 H (8.4-10.2) mg/dL Magnesium 1.5 L (1.6-2.3) mg/dL Troponin I (0.000-0.034) ng/mL 10/29/20 10/29/20 10/29/20 Range/Units 06:54 11:48 15:45 RBC (4.30-5.90) m/uL Neutrophils # (1.3-7.7) k/uL Lymphocytes # (1.0-4.8) k/uL APTT 33.9 H 45.2 H (22.0-30.0) sec D-Dimer (<0.60) mg/L FEU Sodium (137-145) mmol/L BUN (9-20) mg/dL Creatinine (0.66-1.25) mg/dL Glucose (74-99) mg/dL POC Glucose (mg/dL) 142 H (75-99) mg/dL Calcium (8.4-10.2) mg/dL Magnesium (1.6-2.3) mg/dL Troponin I (0.000-0.034) ng/mL 10/29/20 Range/Units 16:53 RBC (4.30-5.90) m/uL Neutrophils # (1.3-7.7) k/uL Lymphocytes # (1.0-4.8) k/uL APTT (22.0-30.0) sec D-Dimer (<0.60) mg/L FEU Sodium (137-145) mmol/L BUN (9-20) mg/dL Creatinine (0.66-1.25) mg/dL Glucose (74-99) mg/dL POC Glucose (mg/dL) 105 H (75-99) mg/dL Calcium (8.4-10.2) mg/dL Magnesium (1.6-2.3) mg/dL Troponin I (0.000-0.034) ng/mL
[2020-10-29 11:49] LABS: Glucose,Whole Blood 142 mg/dL (75-99)
--- NOTE | 2020-10-29 12:29 | ECHOF ---
Referral Reason:Elevated troponin, possible underlying CHF MEASUREMENTS -------- HEIGHT: 170.2 cm WEIGHT: 75.7 kg BP: 136/80 IVSd: 1.3 cm (0.6 - 1.1) LVIDd: 3.5 cm (3.9 - 5.3) LVPWd: 1.3 cm (0.6 - 1.1) EDV(Teich): 50 ml IVSs: 1.6 cm LVIDs: 2.5 cm LVPWs: 1.5 cm %IVS Thck: 29 % ESV(Teich): 23 ml EF(Teich): 55 % %FS: 28 % SV(Teich): 27 ml RVIDd: 2.7 cm (< 3.3) IVC: 17.10 mm Ao Diam: 3.5 cm (2.0 - 3.7) LA Diam: 3.1 cm (2.7 - 3.8) AV Cusp: 2.2 cm (1.5 - 2.6) EPSS: 1.5 cm MV E [place]: 0.56 m/s MV DecT: 196 ms MV Dec [place]: 2.8 m/s MV A [place]: 1.10 m/s MV E/A Ratio: 0.51 MV PHT: 57 ms MR Vmax: 0.99 m/s MR maxP.92 mmHg AV Vmax: 1.28 m/s AV maxP.51 mmHg TR Vmax: 1.15 m/s TR maxP.33 mmHg RAP: 5.00 mmHg RVSP: 10.33 mmHg MV EF SLOPE: 52.66 mm/s (70 - 150) MV EXCURSION: 16.66 mm (> 18.000) FINDINGS -------- This was a technically difficult study with suboptimal views. The left ventricular size is normal. There is mild concentric left ventricular hypertrophy. Overa ll left ventricular systolic function is mild-moderately impaired with, an EF between 40 - 45 %. Ba elvi inferoseptal LV wall motion is hypokinetic. Basal inferolateral hypokinesis. The right ventricle is normal in size. The left atrial size is normal. The right atrial size is normal. Lumason used Aortic valve is trileaflet and is mildly thickened. The mitral valve is normal. The mitral valve leaflets are mildly thickened. There is trace mitral regurgitation. The tricuspid valve appears structurally normal. Trace tricuspid regurgitation present. Right joleen tricular systolic pressure is normal at < 35 mmHg. There is no pulmonic regurgitation present. The aortic root size is normal. Normal inferior vena cava with normal inspiratory collapse consistent with estimated right atrial pre ssure of 5 mmHg. There is no pericardial effusion. CONCLUSIONS -------- 1. The left ventricular size is normal. 2. There is mild concentric left ventricular hypertrophy. 3. Overall left ventricular systolic function is mild-moderately impaired with, an EF between 40 - 45 %. 4. Basal inferoseptal LV wall motion is hypokinetic. 5. Basal inferolateral hypokinesis. 6. Aortic valve is trileaflet and is mildly thickened. 7. The mitral valve leaflets are mildly thickened. 8. There is trace mitral regurgitation. 9. Trace tricuspid regurgitation present. 10. There is no pericardial effusion. DI[employer]OND WHEEL EDGER: Brooke Easley RDCS
[2020-10-29 15:12] LABS: Hemoglobin A1C 5.7 % (4.0-6.0)
[2020-10-29 16:55] LABS: Glucose,Whole Blood 105 mg/dL (75-99)
[2020-10-29] MEDS: HEPARIN SOD,PORK IN 0.45% NACL 25,000 UNIT in 0.45% NACL 1 250ML.BAG IV SCH (17:46)
[2020-10-29 20:29] LABS: Glucose,Whole Blood 121 mg/dL (75-99)
[2020-10-30 05:44] LABS: Glucose,Whole Blood 112 mg/dL (75-99)
[2020-10-30] MEDS: INSULIN ASPART (NovoLOG) 100 UNIT/ML VIAL SQ SCH ×4 (06:21→20:31)
[2020-10-30] MEDS: SODIUM CHLORIDE 0.9% 1,000 ML IV SCH (06:58)
--- NOTE | 2020-10-30 08:25 | P.PN ---
Subjective Progress Note Date: 10/30/20 Principal diagnosis: Acute coronary syndrome This is a pleasant 75-year-old gentleman with diabetes and hypertension and dyslipidemia was admitted to the hospital with acute coronary syndrome and scheduled to undergo a heart catheterization. He was seen this morning. He denies any chest pain or chest discomfort continues to feel weak and tired. Was still waiting for the renal function tests to come back before we pursue with a coronary angiogram. He underwent an echocardiogram which revealed impaired LV function was EF between 40-45% with evidence of wall motion abnormalities concerning for severe underlying coronary artery disease. Objective - Vital Signs Vital signs: Vital Signs Temp 98.0 F 10/30/20 03:27 Pulse 80 10/30/20 03:27 Resp 19 10/30/20 03:27 BP 116/60 10/30/20 03:27 Pulse Ox 98 10/30/20 08:20 Intake & Output 10/29/20 10/30/20 10/30/20 18:59 06:59 18:59 Intake Total 827.774 Output Total 325 2500 Balance 502.774 -2500 Weight 76.2 kg 76.4 kg Intake: Intake, IV Titration 227.774 Amount Heparin Sod,Pork in 0.45% 227.774 NaCl 25,000 unit In 0.45 % NaCl 1 250ml.bag @ 12 UNITS/KG/HR 9.362 mls/hr IV .Q24H [facility] Rx#: [id number] Oral 600 Output: Urine 325 2500 Straight 1400 Other: Voiding Method Indwelling Catheter Indwelling Catheter # Bowel Movements 0 - Constitutional General appearance: Present: no acute distress - Respiratory Respiratory: bilateral: diminished - Cardiovascular Rhythm: regular Heart sounds: normal: S1, S2 Abnormal Heart Sounds: Present: systolic murmur - Labs CBC & Chem 7: 10/29/20 06:54 10/29/20 06:54 Labs: Abnormal Lab Results - Last 24 Hours (Table) 10/29/20 10/29/20 10/29/20 Range/Units 11:48 15:45 16:53 APTT 45.2 H (22.0-30.0) sec POC Glucose (mg/dL) 142 H 105 H (75-99) mg/dL 10/29/20 10/30/20 Range/Units 20:18 05:32 APTT (22.0-30.0) sec POC Glucose (mg/dL) 121 H 112 H (75-99) mg/dL Assessment and Plan Assessment: Assessment #1 acute non-ST elevation myocardial infarction #2 chronic kidney disease #3 diabetes type 2 #4 AV block second degree type I #5 multiple comorbid conditions you Plan #1 continue aspirin and statin #2 hold any beta jennifer in view of the AV block #3 waiting for the renal function test #4 proceed with coronary angiogram if the kidney function are not worse
[2020-10-30] MEDS: ASPIRIN 81 MG PO SCH (08:52)
[2020-10-30 09:25] LABS: Basophils # (A) 0.1 k/uL (0-0.2); Basophils % (A) 1 %; Eosinophils # (A) 0.6 k/uL (0-0.7); Eosinophils % (A) 7 %; HCT 38.6 % (39.0-53.0); HGB 13.1 gm/dL (13.0-17.5); Lymphocytes % (A) 12 %; MCH 32.8 pg (25.0-35.0); MCHC 33.9 g/dL (31.0-37.0); MCV 96.5 fL (80.0-100.0); Monocytes # (A) 0.3 k/uL (0-1.0); Monocytes % (A) 4 %; Neutrophils # (A) 5.9 k/uL (1.3-7.7); Neutrophils % (A) 74 %; Platelet Count 212 k/uL (150-450); RDW 14.5 % (11.5-15.5)
[2020-10-30] MEDS ORDERED: HEPARIN SODIUM 1,000 UN/ML (10ML VL) ONE (09:36)
[2020-10-30] MEDS ORDERED: LIDOCAINE 1% INJ 10MG/ML (20 ML MDV) ONE (09:36)
[2020-10-30] MEDS ORDERED: VERAPAMIL 2.5 MG/ML 2 ML AMP ONE (09:36)
[2020-10-30 09:43] LABS: Calcium 10.6 mg/dL (8.4-10.2); Magnesium 1.8 mg/dL (1.6-2.3); Potassium 3.7 mmol/L (3.5-5.1)
[2020-10-30] MEDS ORDERED: MIDAZOLAM 2 MG/2 ML VIAL IV ONE (09:54)
[2020-10-30] MEDS ORDERED: LIDOCAINE 1% INJ 10MG/ML (20 ML MDV) IV ONE (09:55)
[2020-10-30] MEDS ORDERED: IV FLUID CONTINUATION 1,000 ML IV ONE (09:56)
[2020-10-30] MEDS: VERAPAMIL SYRINGE (5 MG/10 ML) INTRAARTER ONE ×2 (09:57→10:08)
[2020-10-30] MEDS ORDERED: IOPAMIDOL-370 125ML BTL INJ ONE (10:08)
[2020-10-30] MEDS ORDERED: SODIUM CHLORIDE 0.9% 1,000 ML IV SCH (10:15)
[2020-10-30] MEDS ORDERED: RX INFO: IV CONTRAST WAS GIVEN 1 EACH MISC MISCELLANE PRN (10:15)
--- NOTE | 2020-10-30 10:55 | P.PN ---
<Frantz Weinstein - Last Filed: 10/30/20 14:18> Subjective Progress Note Date: 10/30/20 History of Presenting Illness: Patient is a very pleasant 75-year-old male with a past medical history of COPD non-oxygen dependent, type II lvs-fgmieey-vmsuetrcw diabetes mellitus, hypertension, and diabetic neuropathy. Patient presented to the emergency department with a chief complaint of shortness of breath. Patient states he has had progressively worsening shortness of breath over the past month accompanied by a productive cough with yellow phlegm. Patient denies being seen by a y sician for this complaint. States it started off with just shortness of breath upon ambulation walking to and from the bathroom and simple activities of daily living and has now progressed to shortness of breath at rest, while sitting up and while lying down. Patient states cough has been persistent of yellow phlegm. He reports receiving both of his Covid 19 vaccinations as well as his pneumonia vaccination. Patient reports that he follows with Dr. Roberto as his primary care provider and last saw him about 4 or 5 months ago. 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 He reports history of cigarette smoking but states he quit greater than 12 years ago. Patient was seen and fully evaluated in the emergency department. Per ED documentation, patient was hypoxic requiring oxygen supplementation and is currently on 3 L O2 with SpO2 of 91%. EKG was completed showing sinus rhythm at 86 bpm with a Mobitz type I AV block with occasional PVCs, This is a new finding when compared to EKG completed 08/13/2019. Troponin Elevated 0.041 .and 0.043. ProBNP 1720. Chest x-ray showing suspected bilateral multifocal areas of acute edema and/or infiltrate on background chronic parenchymal changes. Covid 19 PCR negative. ABG revealing respiratory alkalosis with pH 7.50, pCO2 28, and pO2 81. Lactic acid elevated at 3.2. Mild hyponatremia also present with sodium of 133 and an acute kidney injury with BUN 32, creatinine 1.88, and GFR of 34 with baseline creatinine of 1.2. Patient admitted under our services with consultation to cardiology. 10/29/20: Patient seen and fully evaluated at the bedside this morning. He reports that shortness of breath has improved. He remains on heparin infusion at this time. Renal function is slowly improving, we will continue with IV hydration. Troponin did come back down as initial troponin was 0.041 followed by 0.043 with last troponin of 0.028. Patient was found to have hypomagnesemia with magnesium of 1.5, order placed for 3 g magnesium IVPB. Patient denies having any headache, lightheadedness, chest pain, palpitations, nausea, or any other complaints at this time. Discussed plan of care with cardiology, we will continue with gentle hydration secondary to elevated creatinine prior to patient's tentative plan to undergo cardiac catheterization tomorrow a.m. 10/30/20: Patient seen and fully evaluated at the bedside this morning upon returning from cardiac cath. Front Office Medical Assistant, Dr. Jurado, reported patient with severe 3 vessel coronary artery disease. Vascular surgery consult was placed. Patient currently reports feeling comfortable at this time. He reports shortness of breath has improved and only returns with exertion. Patient currently denies having any headache, lightheadedness, dizziness, changes in his vision or hearing, chest pain or palpitations, shortness of breath at rest, abdominal pain, nausea, or any other complaints at this time. Cardiac cath site right wrist with TR band in place, no signs of bleeding or hematoma. Patient on 2 L O2 via nasal cannula with SpO2 of 91% at this time. Physical exam: Vital signs reviewed and stable. General: Nontoxic, no distress and appears stated age. Derm: Skin warm and dry, normal coloration for ethnicity. Head: Atraumatic, normocephalic and symmetric. Eyes: EOMs intact, no lid lag, and anicteric sclera Mouth: no lip lesions, mucus membranes dry. Missing teeth. Cardiovascular: regular rate and rhythm with normal S1S2, no murmur, positive posterior tibial pulses bilaterally, and cap refill < 2 seconds. Lungs: Respirations even, regular, and unlabored on 3 L O2 via nasal cannula wit h SpO2 of 90%. Lungs diminished. No rhonchi, wheezes, rales, or crackles noted today. Abdominal: soft, nontender to palpation, no guarding, no appreciable organomegaly Ext: ROM intact. No gross muscle atrophy, no edema, no contractures Neuro: Speech clear, face symmetrical and CN II-XII grossly intact with no noted focal neuro deficits Psych: Alert and oriented to person, place, time, and situation. Appropriate and pleasant affect. Assessment and Plan of Care: NSTEMI EKG changes Acute systolic CHF with EF 40-45% Severe 3 vessel coronary artery disease - EKG was completed showing sinus rhythm at 86 bpm with a Mobitz type I AV block with occasional PVCs, This is a new finding when compared to EKG completed 08/13/2019 which revealed normal sinus rhythm with a first-degree AV block. -Cardiology following, completed cardiac cath today reportedly revealing severe 3 vessel coronary artery disease. -Vascular surgery consulted -Echocardiogram revealing a mild to moderately impaired EF 40-45% with hypokinesis throughout inferioseptal and inferolateral left ventricular wall. This has changed from most recent echocardiogram completed 08/14/19 which revealed a normal EF between 60 and 65%. -Continuous Telemetry monitoring -ProBNP 1720 -Heart healthy diet -Daily Aspirin and atorvastatin. -Lipid profile with a.m. labs -Hgb A1c 5.7% Acute respiratory alkalosis Shortness of breath -Likely resulting from ACS with acute systolic CHF with EF of 40-45% -ABG revealing respiratory alkalosis with pH 7.50, pCO2 28, and pO2 81. -Chest x-ray showing suspected bilateral multifocal areas of acute edema and/or infiltrate on background chronic parenchymal changes. -Covid 19 PCR negative. -Continue Oxygenation as needed to maintain SpO2 equal to or greater than 92%. Acute kidney injury, improving -Continued gentle hydration with IV fluids -We will continue to monitor renal function closely with repeat a.m. labs. -Hold nephrotoxic medications. Lactic acidosis, resolved with fluid bolus Hypomagnesemia, resolved -Will continue to monitor with repeat a.m. labs and replace abnormal electrolyte values as needed. Type II kal-jwqvghx-ymuftkfob diabetes mellitus, blood glucose levels controlled -Hold Glucophage and place patient on glycemic protocol with NovoLog sliding scale. CODE STATUS: Full code DVT prophylaxis: Heparin Discussed with: Patient and RN Anticipated discharge date: Clinical course to determine Anticipated discharge place: Home A total of 45 minutes was spent on the care of this complex patient more than 50% of the time was spent in counseling and care coordination. Objective - Vital Signs Vital signs: Vital Signs Temp 98.0 F 10/30/20 03:27 Pulse 80 10/30/20 03:27 Resp 19 10/30/20 03:27 BP 116/60 10/30/20 03:27 Pulse Ox 98 10/30/20 08:20 Intake & Output 09/05/1610/30/20 10/30/20 18:59 06:59 18:59 Intake Total 827.774 100 Output Total 325 2500 Balance 502.774 -2500 100 Weight 76.2 kg 76.4 kg Intake: IV 100 Intake, IV Titration 227.774 Amount Heparin Sod,Pork in 0.45% 227.774 NaCl 25,000 unit In 0.45 % NaCl 1 250ml.bag @ 12 UNITS/KG/HR 9.362 mls/hr IV .Q24H [facility] Rx#: [id number] Oral 600 Output: Urine 325 2500 Straight 1400 Other: Voiding Method Indwelling Catheter Indwelling Catheter # Bowel Movements 0 - Labs CBC & Chem 7: 10/30/20 08:37 10/30/20 08:37 Labs: Abnormal Lab Results - Last 24 Hours (Table) 10/29/20 10/29/20 10/29/20 Range/Units 11:48 15:45 16:53 RBC (4.30-5.90) m/uL Hct (39.0-53.0) % APTT 45.2 H (22.0-30.0) sec Sodium (137-145) mmol/L BUN (9-20) mg/dL Creatinine (0.66-1.25) mg/dL Glucose (74-99) mg/dL POC Glucose (mg/dL) 142 H 105 H (75-99) mg/dL Calcium (8.4-10.2) mg/dL 10/29/20 10/30/20 10/30/20 Range/Units 20:18 05:32 08:37 RBC (4.30-5.90) m/uL Hct (39.0-53.0) % APTT (22.0-30.0) sec Sodium 134 L (137-145) mmol/L BUN 26 H (9-20) mg/dL Creatinine 1.65 H (0.66-1.25) mg/dL Glucose 121 H (74-99) mg/dL POC Glucose (mg/dL) 121 H 112 H (75-99) mg/dL Calcium 10.6 H (8.4-10.2) mg/dL 10/30/20 Range/Units 08:37 RBC 4.00 L (4.30-5.90) m/uL Hct 38.6 L (39.0-53.0) % APTT (22.0-30.0) sec Sodium (137-145) mmol/L BUN (9-20) mg/dL Creatinine (0.66-1.25) mg/dL Glucose (74-99) mg/dL POC Glucose (mg/dL) (75-99) mg/dL Calcium (8.4-10.2) mg/dL <Zenia Donaldson - Last Filed: 10/30/20 19:08> Subjective Frantz Weinstein NP rendered care for this patient independently, reviewed the findings and plan as documented in the note above. I did not physically speak with or examine the patient on this date. Possible component of CKD. NO ACUTE CHF, CORRECTION NEWLY DISCOVERED SYSTOLIC CARDIOMYOPATHY Objective - Vital Signs Vital signs: Vital Signs Temp 97.8 F 10/30/20 17:53 Pulse 80 10/30/20 03:27 Resp 20 10/30/20 17:53 BP 149/85 10/30/20 17:53 Pulse Ox 90 L 10/30/20 17:53 Intake & Output 10/30/20 10/30/20 10/31/20 06:59 18:59 06:59 Intake Total 220 Output Total 2500 1500 Balance -2500 -1280 Weight 76.4 kg Intake: IV 100 Oral 120 Output: Urine 2500 1500 Straight 1400 Uretheral ([place]) 450 Other: Voiding Method Indwelling Catheter # Voids 1 # Bowel Movements 0 - Labs CBC & Chem 7: 10/30/20 08:37 10/30/20 08:37 Labs: Abnormal Lab Results - Last 24 Hours (Table) 10/29/20 10/30/20 10/30/20 Range/Units 20:18 05:32 08:37 RBC (4.30-5.90) m/uL Hct (39.0-53.0) % Sodium 134 L (137-145) mmol/L BUN 26 H (9-20) mg/dL Creatinine 1.65 H (0.66-1.25) mg/dL Glucose 121 H (74-99) mg/dL POC Glucose (mg/dL) 121 H 112 H (75-99) mg/dL Calcium 10.6 H (8.4-10.2) mg/dL 10/30/20 10/30/20 10/30/20 Range/Units 08:37 11:47 16:38 RBC 4.00 L (4.30-5.90) m/uL Hct 38.6 L (39.0-53.0) % Sodium (137-145) mmol/L BUN (9-20) mg/dL Creatinine (0.66-1.25) mg/dL Glucose (74-99) mg/dL POC Glucose (mg/dL) 138 H 100 H (75-99) mg/dL Calcium (8.4-10.2) mg/dL
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
--- NOTE | 2020-10-30 11:44 | CC ---
CARDIAC CATHETERIZATION REPORT DATE OF SERVICE: October 30, 2020. PERFORMING PHYSICIAN: Jeremy Jurado MD. PROCEDURE PERFORMED: 1. Selective right and left coronary angiogram. 2. Left heart catheterization. INDICATION: Acute emn-GB-ldrykjeyy myocardial infarction in this 75-year-old gentleman who presented with generalized weakness and fatigue and increasing shortness of breath and he was found to be in acute gwy-SM-amefhyxyj myocardial infarction along with second- degree AV block. Also, he underwent an echocardiogram which revealed cardiomyopathy with wall motion abnormalities concerning for severe underlying CAD. APPROACH: Right radial artery. COMPLICATION: None. LEVEL OF SEDATION: Moderate with sedation length of 16 minutes. PROCEDURE DESCRIPTION: After obtaining informed consent, the patient was brought to the cardiac home performance laborer. The right radial artery was cannulated using micropuncture technique, the micropuncture wire passed easily. Then I placed a 6-Hungarian sheath at the right radial artery. I gave the patient after that 2 mg of verapamil IA and 8000 units of heparin IV. Selective right and left coronary angiogram performed with JR4 and JL3.5 catheters. Left heart catheterization was performed using 5-Hungarian pigtail catheter. The procedure was completed without any complication. SELECTIVE CORONARY ANGIOGRAM: 1. The right coronary artery is calcified vessel. It is a large caliber vessel. It is a dominant vessel. The RCA proximally has mild disease only. In the mid portion has intermediate lesion appeared to be in the range of 50%. The RCA distally bifurcates into PDA and PLV branches. The PDA branch appeared to have mild disease only and the PLV branch which is a large caliber vessel has 2 tandem lesions appeared to be in the range of 80% to 90%. 2. The left main is calcified. The distal left main has a lesion appeared to be in the range of 50%, seems to be hazy. The left main bifurcates into LCX and LAD. 3. The LCX is a large caliber vessel. It is a nondominant vessel. The LCX proximally has a lesion appeared to be in the range of 99.9%. 4. The LAD the proximal LAD is extremely calcified with mild disease only. The mid LAD is diffusely diseased with a long tubular lesion. Appeared to be in the range of 80%. The LAD distally has another long tubular lesion in the range of 80% to 90%. HEMODYNAMICS: The LVEDP was about 4-6 mmHg without significant gradient across aortic valve. CONCLUSION: 1. Calcified right and left coronary systems. 2. Severe triple-vessel coronary artery disease. POSTPROCEDURE MANAGEMENT: 1. Given the above anatomy, I advised obtaining a consult from cardiothoracic surgeon for the evaluation of coronary artery bypass grafting. 2. Continue maximize medical treatment. 3. Follow up with the patient. CARSON / STACIE: [id number] /
[2020-10-30 11:48] LABS: Glucose,Whole Blood 138 mg/dL (75-99)
[2020-10-30 16:40] LABS: Glucose,Whole Blood 100 mg/dL (75-99)
[2020-10-30 20:32] LABS: Glucose,Whole Blood 113 mg/dL (75-99)
[2020-10-30] MEDS: CLOPIDOGREL 75 MG TAB PO SCH (20:37)
[2020-10-31 06:24] LABS: Glucose,Whole Blood 114 mg/dL (75-99)
[2020-10-31] MEDS: INSULIN ASPART (NovoLOG) 100 UNIT/ML VIAL SQ SCH ×4 (06:51→20:56)
--- NOTE | 2020-10-31 07:21 | P.PN ---
Subjective Progress Note Date: 10/31/20 Principal diagnosis: Acute coronary syndrome This is a pleasant 75-year-old gentleman was admitted to the hospital with acute coronary syndrome consistent with acute non-ST deviation myocardial infarction. The echo revealed inverted only function was EF between 40-45% with wall motion abnormalities concerning for severe underlying coronary artery disease. He underwent heart catheterization yesterday and that revealed severe two-vessel coronary artery disease with extremely calcified right and left coronary systems with a diffuse disease not amenable for percutaneous coronary intervention. As a matter of fact the patient was seen by the cardiac surgeon who turned the p atient down because of the nature of the disease as well as. The patient was seen this morning. He denies any chest pain or chest discomfort that he states that he is feeling slightly better. He is on dual antiplatelet therapy. I'm going to add small dose of LAURO inhibitor with lisinopril and high intensity statin with Lipitor. He is requesting to go home. From a cardiovascular standpoint of view, he potentially Go home. Objective - Vital Signs Vital signs: Vital Signs Temp 98.1 F 10/31/20 05:57 Pulse 79 10/31/20 05:57 Resp 18 10/31/20 05:57 BP 149/76 10/31/20 05:57 Pulse Ox 91 L 10/31/20 05:57 Intake & Output 10/30/20 10/31/20 10/31/20 18:59 06:59 18:59 Intake Total 220 120 Output Total 1500 1400 Balance -1280 -1280 Weight 76.1 kg Intake: IV 100 Oral 120 120 Output: Urine 1500 1400 Straight 1400 Uretheral ([place]) 450 Other: Voiding Method Indwelling Catheter # Voids 1 - Constitutional General appearance: Present: no acute distress - Respiratory Respiratory: bilateral: CTA - Cardiovascular Rhythm: regular Heart sounds: normal: S1, S2 - Labs CBC & Chem 7: 10/30/20 08:37 10/30/20 08:37 Labs: Abnormal Lab Results - Last 24 Hours (Table) 10/30/20 10/30/20 10/30/20 Range/Units 08:37 08:37 11:47 RBC 4.00 L (4.30-5.90) m/uL Hct 38.6 L (39.0-53.0) % Sodium 134 L (137-145) mmol/L BUN 26 H (9-20) mg/dL Creatinine 1.65 H (0.66-1.25) mg/dL Glucose 121 H (74-99) mg/dL POC Glucose (mg/dL) 138 H (75-99) mg/dL Calcium 10.6 H (8.4-10.2) mg/dL 10/30/20 10/30/20 10/31/20 Range/Units 16:38 20:30 06:00 RBC (4.30-5.90) m/uL Hct (39.0-53.0) % Sodium (137-145) mmol/L BUN (9-20) mg/dL Creatinine (0.66-1.25) mg/dL Glucose (74-99) mg/dL POC Glucose (mg/dL) 100 H 113 H 114 H (75-99) mg/dL Calcium (8.4-10.2) mg/dL Assessment and Plan Assessment: Assessment #1 acute non-ST elevation myocardial infarction #2 chronic kidney disease #3 diabetes type 2 #4 AV block second degree type I #5 multiple comorbid conditions you Plan #1 continue aspirin and statin #2 start lisinopril #3 start high intensity statin #4 potential discharge home
[2020-10-31 07:57] LABS: HCT 38.5 % (39.0-53.0); HGB 13.2 gm/dL (13.0-17.5); MCH 32.8 pg (25.0-35.0); MCHC 34.2 g/dL (31.0-37.0); MCV 95.9 fL (80.0-100.0); Mean Platelet Volume 7.1; Platelet Count 221 k/uL (150-450); RBC 4.02 m/uL (4.30-5.90); RDW 14.3 % (11.5-15.5); WBC 7.2 k/uL (3.8-10.6)
[2020-10-31 08:10] LABS: Calcium 10.6 mg/dL (8.4-10.2); Magnesium 1.6 mg/dL (1.6-2.3); Potassium 3.5 mmol/L (3.5-5.1)
[2020-10-31] MEDS: ASPIRIN 81 MG PO SCH (08:57)
[2020-10-31] MEDS: lisinopriL 5 MG TAB PO SCH (08:57)
[2020-10-31] MEDS: CLOPIDOGREL 75 MG TAB PO SCH (08:57)
[2020-10-31 11:03] LABS: Chol/HDL Ratio 5.81
[2020-10-31 11:46] LABS: Glucose,Whole Blood 99 mg/dL (75-99)
[2020-10-31] MEDS ORDERED: MAGNESIUM SULFATE-D5W PMX 1 GM in DEXTROSE/WATER 1 100ML.BAG IVPB SCH (12:45)
[2020-10-31] MEDS: MAGNESIUM SULFATE-D5W PMX 1 GM in DEXTROSE/WATER 1 100ML.BAG IVPB SCH ×2 (15:41→17:03)
[2020-10-31 16:34] LABS: Glucose,Whole Blood 141 mg/dL (75-99)
--- NOTE | 2020-10-31 16:49 | P.DS ---
<Frantz Weisntein - Last Filed: 10/31/20 16:35> Providers Expected date of discharge: 10/31/20 Hospital Course: Discharge Diagnosis: NSTEMI EKG changes, Second degree Mobitz type I AV block Newly diagnosed Systolic Cardiomyopathy Severe 3 vessel coronary artery disease Acute respiratory alkalosis Acute kidney injury, improved with fluid hydration Lactic acidosis, resolved with fluid bolus Hypomagnesemia, replaced Type II hdv-mmzqnin-djfffjtzs diabetes mellitus, blood glucose levels controlled with hemoglobin A1c of 5.7% Hospital Course: Patient is a very pleasant 75-year-old male with a past medical history of COPD non-oxygen dependent, type II iru-ujhtach-dqnuuxnzr diabetes mellitus, hypertension, and diabetic neuropathy. Patient presented to the emergency department with a chief complaint of shortness of breath. Patient states he has had progressively worsening shortness of breath over the past month accompanied by a productive cough with yellow phlegm. Patient denies being seen by a physician for this complaint. States it started off with just shortness of breath upon ambulation walking to and from the bathroom and simple activities of daily living and has now progressed to shortness of breath at rest, while sitting up and while lying down. Patient states cough has been persistent of yellow phlegm. He reports receiving both of his Covid 19 vaccinations as well as his pneumonia vaccination. Patient reports that he follows with Dr. Roberto as his primary care provider and last saw him about 4 or 5 months ago. Patient denies following with penciller or port captain on an outpatient basis. He reports history of cigarette smoking but states he quit greater than 12 years ago. Patient was seen and fully evaluated in the emergency department and found to be hypoxic requiring O2 supplementation. EKG was completed showing sinus rhythm at 86 bpm with a second degree Mobitz type I AV block with occasional PVCs, This is a new finding when compared to EKG completed 08/13/2019. Troponin Elevated 0.041 .and 0.043. ProBNP 1720. Chest x-ray showing suspected bilateral multifocal areas of acute edema and/or infiltrate on background chronic parenchymal changes. Covid 19 PCR negative. ABG revealing respiratory alkalosis with pH 7.50, pCO2 28, and pO2 81. Lactic acid elevated at 3.2. Mild hyponatremia also present with sodium of 133 and an acute kidney injury with BUN 32, creatinine 1.88, and GFR of 34 with baseline creatinine of 1.2. Patient placed on heparin infusion for treatment of NSTEMI and admitted under our services with consultation to cardiology. Echocardiogram revealing a mild to moderately impaired EF 40-45% with hypokinesis throughout inferioseptal and inferolateral left ventricular wall. This has changed from most recent echocardiogram completed 08/14/19 which revealed a normal EF between 60 and 65%. Pt received IV hydration for tx ALBERTO and after showing improvement he underwent a cardiac cath. Cardiac cath revealed severe three-vessel coronary artery disease and a vascular surgery consult was placed. Vascular surgery evaluated patient and stated patient is not a good candidate for surgical revascularization and recommended continuing to maximize medical therapy. Home oxygen evaluation was also completed, patient 82% on room air at rest requiring 3 L oxygen supplementation at rest and ambulatory to maintain SpO2 90% or greater. In addition to being placed on continuous home oxygen, patient was started on Plavix, lisinopril, Aldactone, atorvastatin, and daily aspirin. Patient requesting discharge home with his . Patient cleared by cardiology for discharge and medically stable for discharge home on oxygen at this time. Patient to follow-up with his PCP in 3 days and with cardiology next week as discussed. Patient given prescriptions for labs to be completed in 3 days to follow up on renal function and electrolytes. Physical exam: Vital signs reviewed and stable. General: Nontoxic, no distress and appears stated age. Derm: Skin warm and dry, normal coloration for ethnicity. Head: Atraumatic, normocephalic and symmetric. Eyes: EOMs intact, no lid lag, and anicteric sclera Mouth: no lip lesions, mucus membranes moist. Missing teeth. Cardiovascular: regular rate and rhythm with normal S1S2, no murmur, positive posterior tibial pulses bilaterally, and cap refill < 2 seconds. Lungs: Respirations even, regular, and unlabored on 3 L O2 via nasal cannula with SpO2 of 91%. Lungs diminished. No rhonchi, wheezes, rales, or crackles noted today. Abdominal: soft, nontender to palpation, no guarding, no appreciable organomegaly Ext: ROM intact. No gross muscle atrophy, no edema, no contractures Neuro: Speech clear, face symmetrical and CN II-XII grossly intact with no noted focal neuro deficits Psych: Alert and oriented to person, place, time, and situation. Appropriate and pleasant affect. A total of 50 minutes of time were spent preparing this complex discharge summary. Patient Condition at Discharge: Stable Plan - Discharge Summary Discharge Rx Participant: No New Discharge Prescriptions: New Clopidogrel [Plavix] 75 mg PO DAILY 30 Days #30 tab lisinopriL [Zestril] 5 mg PO DAILY 30 Days #30 tab Spironolactone [Aldactone] 25 mg PO DAILY 30 Days #30 tablet Aspirin 81 mg PO DAILY 30 Days #30 tab Atorvastatin [Lipitor] 80 mg PO HS 30 Days #30 tab Magnesium Oxide [Mag-Ox] 400 mg PO DAILY 30 Days #30 tablet Continue Multivitamins, Thera [Multivitamin (formulary)] 1 tab PO DAILY Pioglitazone HCl/Metformin HCl [Pioglitazone-Metformin 15-750] 1 tab PO BID Albuterol Inhaler [Ventolin Hfa Inhaler] 2 puff INHALATION RT-Q4H PRN PRN Reason: Shortness Of Breath Discharge Medication List Multivitamins, Thera [Multivitamin (formulary)] 1 tab PO DAILY 08/13/19 [History] Pioglitazone HCl/Metformin HCl [Pioglitazone-Metformin -824] 1 tab PO BID 08/13/19 [History] Albuterol Inhaler [Ventolin Hfa Inhaler] 2 puff INHALATION RT-Q4H PRN 10/28/20 [History] Aspirin 81 mg PO DAILY 30 Days #30 tab 10/31/20 [Rx] Atorvastatin [Lipitor] 80 mg PO HS 30 Days #30 tab 10/31/20 [Rx] Clopidogrel [Plavix] 75 mg PO DAILY 30 Days #30 tab 10/31/20 [Rx] Magnesium Oxide [Mag-Ox] 400 mg PO DAILY 30 Days #30 tablet 10/31/20 [Rx] Spironolactone [Aldactone] 25 mg PO DAILY 30 Days #30 tablet 10/31/20 [Rx] lisinopriL [Zestril] 5 mg PO DAILY 30 Days #30 tab 10/31/20 [Rx] Follow up Appointment(s)/Referral(s): Jeremy Jurado MD [STAFF PHYSICIAN] - 1 Week (call office when open to schedule follow-up appointment) Rajesh Goodson [NON-STAFF] - 1 Week Adam Roberto MD [Primary Care Provider] - 1-2 days (call office when open to schedule follow-up appointment) Ambulatory/Diagnostic Orders: Basic Metabolic Panel [LAB.AMB] Location: None Selected Magnesium [LAB.AMB] Location: None Selected Patient Instructions/Handouts: Coronary Artery Disease (DC), Heart Healthy Diet (DC), Using Oxygen at Home (DC), Meal Planning with Diabetes Exchanges (DC) Activity/Diet/Wound Care/Special Instructions: Activity: As tolerated. Take breaks as needed. Diet: Heart healthy and carb consistent diet. Avoid salts, or foods with hidden salts such as canned or boxed foods and frozen dinners. Extra salt makes your heart work harder and traps the fluid in your body for longer. Special Instructions: Weigh yourself every morning after you urinate. If you gain 3 pounds overnight or more than 5 pounds in one week, call your primary physician and penciller for guidance on your medications or they may want to see you in their office. Keep a daily log of your weights and be sure to bring with you at follow up visits with your PCP and penciller. Take all of your medications as directed. NEVER skip a dose. And remember to keep all of your doctor's appointments and follow-up as needed. Call your primary care provider and penciller if you notice any extra swelling in your legs, ankles, feet or abdomen, if you have a new dry cough, if your shortness of breath worsens with activity or at rest, or if you feel more fatigued. You are being discharged home on oxygen. It is important to wear this at all times even while showering. You will need to follow-up with Dr. Jurado, penciller in 1 week as we discussed and with your primary care doctor, Dr. Miller this week.. You are being discharged home with prescriptions to go and have repeat lab work done. It is very important to follow up and get your blood drawn in 3 days to check your kidney function and electrolyte levels within the new medications we have started you on. Thank you for allowing us to participate in your care, it was truly a pleasure having you for our patient!!! Discharge Disposition: HOME SELF-CARE <Zenia Donaldson - Last Filed: 10/31/20 17:21> Providers Date of admission: 10/28/20 16:50 Attending physician: Zenia Donaldson DO Consults: 10/28/20 16:45 Consult Physician Routine Consulting Provider: Jeremy Jurado Consult Reason/Comments: heart failure Do you want consulting provider notified?: Yes Primary care physician: [facility] Course: Patient seen and examined independently. Patient was also seen by Frantz Weinstein NP and case was discussed. I am in agreement with discharge diagnosis, hospital course, and physical exam as written above and amended below. Doing well. Shortness of breath is still there but getting better. present at bedside all questions answered. General: non toxic, no distress, appears at stated age Derm: warm, dry Cardiovascular: S1S2 reg, no murmur, positive posterior tibial pulse bilateral, Lungs: Decreased breath sounds bilateral, no rhonchi, no rales , no accessory muscle use Abdominal: soft, nontender to palpation, no guarding, no appreciable organomegaly Ext: no gross muscle atrophy, no edema, no contractures Neuro: CN II-XI grossly intact, no focal neuro deficits Psych: Alert, oriented, appropriate affect
[2020-10-31 20:46] LABS: Glucose,Whole Blood 114 mg/dL (75-99)
[2020-10-31] MEDS ORDERED: ATORVASTATIN 80 MG TAB PO SCH (21:00)
[2020-11-01 06:36] LABS: Glucose,Whole Blood 112 mg/dL (75-99)
[2020-11-01] MEDS: INSULIN ASPART (NovoLOG) 100 UNIT/ML VIAL SQ SCH ×2 (06:39→11:46)
[2020-11-01] MEDS: lisinopriL 5 MG TAB PO SCH (08:18)
[2020-11-01] MEDS: CLOPIDOGREL 75 MG TAB PO SCH (08:18)
[2020-11-01] MEDS: ASPIRIN 81 MG PO SCH (08:18)
--- NOTE | 2020-11-01 08:26 | P.DS ---
<Frantz Weinstein - Last Filed: 11/01/20 10:24> Providers Expected date of discharge: 11/01/20 Hospital Course: Discharge Diagnosis: NSTEMI EKG changes, Second degree Mobitz type I AV block Newly diagnosed Systolic Cardiomyopathy Severe 3 vessel coronary artery disease Acute respiratory alkalosis Acute kidney injury, improved with fluid hydration Lactic acidosis, resolved with fluid bolus Hypomagnesemia, replaced Hypercalcemia Type II mqc-whfzwat-pflbbmizi diabetes mellitus, blood glucose levels controlled with hemoglobin A1c of 5.7% Hospital Course: Patient is a very pleasant 75-year-old male with a past medical history of COPD non-oxygen dependent, type II xmo-cifgssy-modjdtebs diabetes mellitus, hypertension, and diabetic neuropathy. Patient presented to the emergency department with a chief complaint of shortness of breath. Patient states he has had progressively worsening shortness of breath over the past month accompanied by a productive cough with yellow phlegm. Patient denies being seen by a physician for this complaint. States it started off with just shortness of breath upon ambulation walking to and from the bathroom and simple activities of daily living and has now progressed to shortness of breath at rest, while sitting up and while lying down. Patient states cough has been persistent of yellow phlegm. He reports receiving both of his Covid 19 vaccinations as well as his pneumonia vaccination. Patient reports that he follows with Dr. Roberto as his primary care provider and last saw him about 4 or 5 months ago. Patient denies following with managed care coordinator or materials specialist on an outpatient basis. He reports history of cigarette smoking but states he quit greater than 12 years ago. Patient was seen and fully evaluated in the emergency department and found to be hypoxic requiring O2 supplementation. EKG was completed showing sinus rhythm at 86 bpm with a second degree Mobitz type I AV block with occasional PVCs, This is a new finding when compared to EKG completed 08/13/2019. Troponin Elevated 0.041 .and 0.043. ProBNP 1720. Chest x-ray showing suspected bilateral multifocal areas of acute edema and/or infiltrate on background chronic parenchymal changes. Covid 19 PCR negative. ABG revealing respiratory alkalosis with pH 7.50, pCO2 28, and pO2 81. Lactic acid elevated at 3.2. Mild hyponatremia also present with sodium of 133 and an acute kidney injury with BUN 32, creatinine 1.88, and GFR of 34 with baseline creatinine of 1.2. Patient placed on heparin infusion for treatment of NSTEMI and admitted under our services with consultation to cardiology. Echocardiogram revealing a mild to moderately impaired EF 40-45% with hypokinesis throughout inferioseptal and inferolateral left ventricular wall. This has changed from most recent echocardiogram completed 08/14/19 which revealed a normal EF between 60 and 65%. Pt received IV hydration for tx ALBERTO and after showing improvement he underwent a cardiac cath. Cardiac cath revealed severe three-vessel coronary artery disease and a vascular surgery consult was placed. Vascular surgery evaluated patient and stated patient is not a good candidate for surgical revascularization and recommended continuing to maximize medical therapy. Home oxygen evaluation was also completed, patient 82% on room air at rest and 76% with ambulation, requiring continuous 3 L oxygen supplementation to maintain SpO2 90% or greater. In addition to being placed on continuous home oxygen, patient was started on Plavix, lisinopril, Aldactone, atorvastatin, and daily aspirin. Patient requesting discharge home with his . Patient cleared by cardiology for discharge and medically stable for discharge home on oxygen at this time. Patient to follow-up with his PCP in 3 days and with cardiology next week as discussed. Patient given prescriptions for labs to be completed in 3 days to follow up on renal function and electrolytes. Physical exam: 11/01/20: Patient was seen and fully evaluated at bedside this morning. Patient very eager to go home, discharge was canceled yesterday as home oxygen was not delivered. Patient resting comfortably with respirations even, regular, and unlabored on 3 L O2 via nasal cannula. He did have noted crackles at bilateral bases and was started on Aldactone this morning. Patient has been cleared by cardiology. Patient denies having any headache, lightheadedness, dizziness, chest pain, palpitations, shortness of breath at rest, abdominal pain, nausea, vomiting, or experiencing any numbness/tingling/weakness in his extremities. Patient has been ambulatory in room without any noted difficulties. Patient stable for discharge home with his at this time. Awaiting home delivery of oxygen, [facility] was contacted and to deliver today, patient to be discharged once oxygen is delivered. Vital signs reviewed and stable. General: Nontoxic, no distress and appears stated age. Derm: Skin warm and dry, normal coloration for ethnicity. Head: Atraumatic, normocephalic and symmetric. Eyes: EOMs intact, no lid lag, and anicteric sclera Mouth: no lip lesions, mucus membranes moist. Missing teeth. Cardiovascular: regular rate and rhythm with normal S1S2, no murmur, positive posterior tibial pulses bilaterally, and cap refill < 2 seconds. Lungs: Respirations even, regular, and unlabored on 3 L O2 via nasal cannula with SpO2 of 91%. Lungs with crackles at bilateral bases. Abdominal: soft, nontender to palpation, no guarding, no appreciable organomegaly Ext: ROM intact. No gross muscle atrophy, no edema, no contractures Neuro: Speech clear, face symmetrical and CN II-XII grossly intact with no noted focal neuro deficits Psych: Alert and oriented to person, place, time, and situation. Appropriate and pleasant affect. A total of 45 minutes of time were spent preparing this complex discharge summary. Patient Condition at Discharge: Stable Plan - Discharge Summary Discharge Rx Participant: No New Discharge Prescriptions: New Clopidogrel [Plavix] 75 mg PO DAILY 30 Days #30 tab lisinopriL [Zestril] 5 mg PO DAILY 30 Days #30 tab Spironolactone [Aldactone] 25 mg PO DAILY 30 Days #30 tablet Aspirin 81 mg PO DAILY 30 Days #30 tab Atorvastatin [Lipitor] 80 mg PO HS 30 Days #30 tab Magnesium Oxide [Mag-Ox] 400 mg PO DAILY 30 Days #30 tablet Continue Multivitamins, Thera [Multivitamin (formulary)] 1 tab PO DAILY Pioglitazone HCl/Metformin HCl [Pioglitazone-Metformin 15-850] 1 tab PO BID Albuterol Inhaler [Ventolin Hfa Inhaler] 2 puff INHALATION RT-Q4H PRN PRN Reason: Shortness Of Breath Discharge Medication List Multivitamins, Thera [Multivitamin (formulary)] 1 tab PO DAILY 08/13/19 [History] Pioglitazone HCl/Metformin HCl [Pioglitazone-Metformin 15-850] 1 tab PO BID 08/13/19 [History] Albuterol Inhaler [Ventolin Hfa Inhaler] 2 puff INHALATION RT-Q4H PRN 10/28/20 [History] Aspirin 81 mg PO DAILY 30 Days #30 tab 10/31/20 [Rx] Atorvastatin [Lipitor] 80 mg PO HS 30 Days #30 tab 10/31/20 [Rx] Clopidogrel [Plavix] 75 mg PO DAILY 30 Days #30 tab 10/31/20 [Rx] Magnesium Oxide [Mag-Ox] 400 mg PO DAILY 30 Days #30 tablet 10/31/20 [Rx] Spironolactone [Aldactone] 25 mg PO DAILY 30 Days #30 tablet 10/31/20 [Rx] lisinopriL [Zestril] 5 mg PO DAILY 30 Days #30 tab 10/31/20 [Rx] Follow up Appointment(s)/Referral(s): Jeremy Jurado MD [STAFF PHYSICIAN] - 1 Week (call office when open to schedule follow-up appointment) [place] [employer] [NON-STAFF] - 1 Week Adam Roberto MD [Primary Care Provider] - 1-2 days (call office when open to schedule follow-up appointment) Ambulatory/Diagnostic Orders: Basic Metabolic Panel [LAB.AMB] Location: None Selected Magnesium [LAB.AMB] Location: None Selected Patient Instructions/Handouts: Coronary Artery Disease (DC), Heart Healthy Diet (DC), Using Oxygen at Home (DC), Meal Planning with Diabetes Exchanges (DC) Activity/Diet/Wound Care/Special Instructions: Activity: As tolerated. Take breaks as needed. Diet: Heart healthy and carb consistent diet. Avoid salts, or foods with hidden salts such as canned or boxed foods and frozen dinners. Extra salt makes your heart work harder and traps the fluid in your body for longer. Special Instructions: Weigh yourself every morning after you urinate. If you gain 3 pounds overnight or more than 5 pounds in one week, call your primary physician and managed care coordinator for guidance on your medications or they may want to see you in their office. Keep a daily log of your weights and be sure to bring with you at follow up visits with your PCP and managed care coordinator. Take all of your medications as directed. NEVER skip a dose. And remember to keep all of your doctor's appointments and follow-up as needed. Call your primary care provider and managed care coordinator if you notice any extra swelling in your legs, ankles, feet or abdomen, if you have a new dry cough, if your shortness of breath worsens with activity or at rest, or if you feel more fatigued. You are being discharged home on oxygen. It is important to wear this at all times even while showering. You will need to follow-up with Dr. Jurado, managed care coordinator in 1 week as we discussed and with your primary care doctor, Dr. Miller this week.. You are being discharged home with prescriptions to go and have repeat lab work done. It is very important to follow up and get your blood drawn in 3 days to check your kidney function and electrolyte levels within the new medications we have started you on. Thank you for allowing us to participate in your care, it was truly a pleasure having you for our patient!!! Discharge Disposition: HOME SELF-CARE <Zenia Donaldson - Last Filed: 11/01/20 14:19> Providers Date of admission: 10/28/20 16:50 Attending physician: Zenia Donaldson DO Consults: 10/28/20 16:45 Consult Physician Routine Consulting Provider: Jeremy Jurado Consult Reason/Comments: heart failure Do you want consulting provider notified?: Yes Primary care physician: [facility] Course: Frantz Weinstein NP rendered care for this patient independently, reviewed the findings and plan as documented in the note above. I did not physically speak with or examine the patient on this date.
[2020-11-01] MEDS ORDERED: SPIRONOLACTONE 25 MG TAB PO SCH (09:00)
--- NOTE | 2020-11-01 09:31 | P.PN ---
Subjective Progress Note Date: 11/01/20 Principal diagnosis: Acute coronary syndrome This is a pleasant 75-year-old gentleman was admitted to the hospital with acute coronary syndrome consistent with acute non-ST deviation myocardial infarction. The echo revealed inverted only function was EF between 40-45% with wall motion abnormalities concerning for severe underlying coronary artery disease. He underwent heart catheterization yesterday and that revealed severe two-vessel coronary artery disease with extremely calcified right and left coronary systems with a diffuse disease not amenable for percutaneous coronary intervention. As a matter of fact the patient was seen by the cardiac surgeon who turned the p atient down because of the nature of the disease as well as. The patient was seen this morning. He remains asymptomatic from a cardiovascular standpoint of view. On examination he does have a few crackles in both lung bases but he is not in heart failure. He would like to go home. The patient can be discharged home. Objective - Vital Signs Vital signs: Vital Signs Temp 97.9 F 11/01/20 08:21 Pulse 65 11/01/20 08:21 Resp 18 11/01/20 08:23 BP 118/70 11/01/20 08:21 Pulse Ox 95 11/01/20 08:21 Intake & Output 10/31/20 11/01/20 11/01/20 18:59 06:59 18:59 Intake Total 240 240 360 Output Total 1500 1450 Balance -1260 -1210 360 Weight 76 kg Intake: Oral 240 240 360 Output: Urine 1500 1450 Straight 700 Uretheral ([place]) 750 Other: Voiding Method Indwelling Catheter Toilet Urinal # Voids 1 2 # Bowel Movements 0 - Constitutional General appearance: Present: no acute distress - Respiratory Respiratory: bilateral: rales - Cardiovascular Rhythm: regular Heart sounds: normal: S1, S2 - Labs CBC & Chem 7: 10/31/20 07:43 10/31/20 07:43 Labs: Abnormal Lab Results - Last 24 Hours (Table) 10/29/20 10/31/20 10/31/20 Range/Units 06:54 16:33 20:43 POC Glucose (mg/dL) 141 H 114 H (75-99) mg/dL Triglycerides 180.0 H (0.0-149.0) mg/dL HDL Cholesterol 26.0 L (40.0-60.0) mg/dL 11/01/20 Range/Units 06:33 POC Glucose (mg/dL) 112 H (75-99) mg/dL Triglycerides (0.0-149.0) mg/dL HDL Cholesterol (40.0-60.0) mg/dL Assessment and Plan Assessment: Assessment #1 acute non-ST elevation myocardial infarction #2 chronic kidney disease #3 diabetes type 2 #4 AV block second degree type I #5 multiple comorbid conditions you Plan #1 continue the current medical regimen #2 the patient can be discharged home
[2020-11-01 11:43] LABS: Glucose,Whole Blood 109 mg/dL (75-99)
[2020-11-01 11:44] VITALS: BP 130/76; PULSE 89; RESP 20; TEMP 97.5
== END 2020-11-01 14:05 | disposition home or self-care (01) | DRG 280 ==
LOC: EC 14:34 → 3SCARD 16:50
PROVIDERS: ADMIT Internal Medicine; ATTEND Internal Medicine
PROC: B211YZZ Fluoroscopy of Multiple Coronary Arteries using Other Contrast (ICD-10-PCS; 2020-10-30)
PROC: B215YZZ Fluoroscopy of Left Heart using Other Contrast (ICD-10-PCS; 2020-10-30)
PROC: 4A023N7 Measurement of Cardiac Sampling and Pressure, Left Heart, Percutaneous Approach (ICD-10-PCS; principal; 2020-10-30 09:30)
DX: I21.4 Non-ST elevation (NSTEMI) myocardial infarction (principal); J96.01 Acute respiratory failure with hypoxia; E87.1 Hypo-osmolality and hyponatremia; E87.4 Mixed disorder of acid-base balance; I13.0 Hypertensive heart and chronic kidney disease with heart failure and stage 1 through stage 4 chronic kidney disease, or unspecified chronic kidney disease; I42.9 Cardiomyopathy, unspecified; N17.9 Acute kidney failure, unspecified; E11.22 Type 2 diabetes mellitus with diabetic chronic kidney disease; E11.40 Type 2 diabetes mellitus with diabetic neuropathy, unspecified; E78.5 Hyperlipidemia, unspecified; I50.9 Heart failure, unspecified; E83.42 Hypomagnesemia; E83.52 Hypercalcemia; F43.10 Post-traumatic stress disorder, unspecified; I25.10 Atherosclerotic heart disease of native coronary artery without angina pectoris; I25.84 Coronary atherosclerosis due to calcified coronary lesion; I44.1 Atrioventricular block, second degree; N18.9 Chronic kidney disease, unspecified; Z20.822 Contact with and (suspected) exposure to COVID-19; Z87.891 Personal history of nicotine dependence; Z82.0 Family history of epilepsy and other diseases of the nervous system; Z79.84 Long term (current) use of oral hypoglycemic drugs
CPT/HCPCS: 36415; 36600; 71045; 80048; 80053; 80061; 82805; 83036; 83605; 83735; 83880; 84484; 85025; 85027; 85379; 85610; 85730; 86850; 86900; 86901; 87635; 93306; 93458; 94760; 99285

== ENCOUNTER 2020-11-19 22:21 | Inpatient (IN) | payer MEDICARE ==
[2020-11-19] MEDS ORDERED: SODIUM CHLORIDE 0.9% 1,000 ML IV STA (23:14)
[2020-11-20 00:17] LABS: Basophils % (A) 0 %; Eosinophils # (A) 0.3 k/uL (0-0.7); Eosinophils % (A) 3 %; HGB 14.8 gm/dL (13.0-17.5); Lymphocytes # (A) 1.7 k/uL (1.0-4.8); Lymphocytes % (A) 18 %; MCH 31.4 pg (25.0-35.0); MCV 95.4 fL (80.0-100.0); Mean Platelet Volume 7.9; Monocytes # (A) 0.4 k/uL (0-1.0); Monocytes % (A) 5 %; Neutrophils # (A) 6.6 k/uL (1.3-7.7); Neutrophils % (A) 72 %; Platelet Count 157 k/uL (150-450); RBC 4.71 m/uL (4.30-5.90); RDW 13.8 % (11.5-15.5); WBC 9.1 k/uL (3.8-10.6)
[2020-11-20 00:29] LABS: Albumin 3.9 g/dL (3.5-5.0); Magnesium 1.5 mg/dL (1.6-2.3); Phosphorus 2.6 mg/dL (2.5-4.5); Total Bilirubin 0.9 mg/dL (0.2-1.3); Total Protein 6.7 g/dL (6.3-8.2)
--- NOTE | 2020-11-20 00:30 | XR ---
EXAMINATION TYPE: XR chest 2V DATE OF EXAM: 11/19/2020 COMPARISON: 10/28/2020 HISTORY: Short of breath TECHNIQUE: 2 view FINDINGS: There is coarse pulmonary interstitial density in the lung craig. Heart size is normal. Th ere is poor inspiration. IMPRESSION: Pulmonary interstitial fibrosis without change compared to recent exam. No obvious heart failure.
[2020-11-20 00:38] LABS: Calcium 13.4 mg/dL (8.4-10.2); Potassium 4.4 mmol/L (3.5-5.1)
[2020-11-20 00:44] LABS: Prothrombin Time 10.9 sec (9.0-12.0)
[2020-11-20] MEDS ORDERED: ASPIRIN 81 MG PO STA (00:55)
[2020-11-20] MEDS ORDERED: HEPARIN SODIUM 1,000 UN/ML (10ML VL) IV PRN (00:55)
[2020-11-20] MEDS ORDERED: HEPARIN SODIUM 1,000 UN/ML (10ML VL) IV ONE (00:55)
--- NOTE | 2020-11-20 01:10 | ED ---
Recheck HPI - General Source: patient, family, EMS Mode of arrival: EMS Limitations: no limitations <Rich Bocanegra - Last Filed: 11/20/20 01:36> <Alli Mullins - Last Filed: 11/24/20 00:29> - General Chief Complaint: Recheck/Abnormal Lab/Rx Stated Complaint: Dehydrated, dizziness Time Seen by Provider: 11/19/20 22:54 - History of Present Illness Initial Comments: 75-year-old male with history of hypertension, dyslipidemia, COPD, diabetes presenting to the emergency department with a chief complaint of weakness. The states the patient was discharged from the hospital about 20 days ago after undergoing cardiac catheterization and was found not to be a candidate for angioplasty. States she has an appointment on Sunday with another flute grinder but she cannot recall his name. She states that the patient has not been eating well for the past 2 weeks and has very little appetite. She states he is only been drinking a little bit of [place] juice and eating some toast in the morning. She also states the patient had few intermittent vomiting episodes over the last 2 days. Patient reports he feels slightly weak but denies any chest pain shortness of breath headaches one-sided weakness or paresthesias. denies any diaphoretic episodes, lightheadedness or dizziness. (Rich Bocanegra) - Related Data Home Medications Medication Instructions Recorded Confirmed Multivitamins, Thera [Multivitamin 1 tab PO DAILY 08/13/19 11/20/20 (formulary)] Pioglitazone HCl/Metformin HCl 1 tab PO BID 08/13/19 11/20/20 [Pioglitazone-Metformin 15850] Albuterol Inhaler [Ventolin Hfa 2 puff INHALATION RT-Q4H PRN 10/28/20 11/20/20 Inhaler] Atorvastatin [Lipitor] 80 mg PO DAILY 11/20/20 11/20/20 Previous Rx's Medication Instructions Recorded Aspirin 81 mg PO DAILY 30 Days #30 tab 10/31/20 Clopidogrel [Plavix] 75 mg PO DAILY 30 Days #30 tab 10/31/20 Magnesium Oxide [Mag-Ox] 400 mg PO DAILY 30 Days #30 tablet 10/31/20 lisinopriL [Zestril] 5 mg PO DAILY 30 Days #30 tab 10/31/20 Isosorbide Mononitrate ER [Imdur] 30 mg PO DAILY #30 tablet 11/23/20 Nitroglycerin Sl Tabs [Nitrostat] 0.4 mg SUBLINGUAL Q5M PRN #15 tab 11/23/20 Ranolazine [Ranexa] 500 mg PO Q12HR #60 tablet 11/23/20 Allergies Allergy/AdvReac Type Severity Reaction Status Date / Time Sulfa (Sulfonamide Allergy Severe Anaphylaxis Verified 11/20/20 08:14 Antibiotics) erythromycin base Allergy Unknown Unknown Verified 11/20/20 08:14 Mushroom Allergy Anaphylaxis Verified 11/20/20 08:14 caffeine AdvReac Rapid Verified 11/23/20 09:43 Heart Rate coffee (Coffea arabica) AdvReac Rapid Verified 11/23/20 09:43 Heart Rate Review of Systems ROS Other: All systems not noted in ROS Statement are negative. <Rich Bocanegra - Last Filed: 11/20/20 01:36> ROS Other: All systems not noted in ROS Statement are negative. <Alli Mullins - Last Filed: 11/24/20 00:29> ROS Statement: Those systems with pertinent positive or pertinent negative responses have been documented in the HPI. Past Medical History Past Medical History: COPD, Diabetes Mellitus, Hyperlipidemia, Hypertension Additional Past Medical History / Comment(s): Neuropathy, diverticulosis History of Any Multi-Drug Resistant Organisms: None Reported Past Surgical History: Appendectomy, Hernia Repair, Orthopedic Surgery, Tonsillectomy Additional Past Surgical History / Comment(s): Right Rotator Cuff repair Past Anesthesia/Blood Transfusion Reactions: No Reported Reaction Past Psychological History: PTSD Smoking Status: Former smoker Past Alcohol Use History: None Reported Past Drug Use History: None Reported - Past Family History family Additional Family Medical History / Comment(s): Alzheimer <Rich Bocanegra - Last Filed: 11/20/20 01:36> General Exam Limitations: no limitations General appearance: alert, in no apparent distress Head exam: Present: atraumatic, normocephalic, normal inspection Eye exam: Present: normal appearance, PERRL Pupils: Present: normal accommodation ENT exam: Present: normal exam, normal oropharynx, mucous membranes dry, TM's normal bilaterally, normal external ear exam Neck exam: Present: normal inspection, full ROM. Absent: tenderness, lymphadenopathy Respiratory exam: Present: normal lung sounds bilaterally. Absent: respiratory distress, wheezes, rales, rhonchi, stridor Cardiovascular Exam: Present: regular rate, normal rhythm, normal heart sounds. Absent: systolic murmur GI/Abdominal exam: Present: soft. Absent: distended, tenderness, guarding, rebound Extremities exam: Present: normal inspection, full ROM, normal capillary refill, other (Palpable DP and PT bilaterally.). Absent: tenderness Back exam: Present: normal inspection, full ROM. Absent: tenderness, CVA tenderness (R) Neurological exam: Present: alert, oriented X3 Psychiatric exam: Present: normal affect, normal mood Skin exam: Present: warm, dry, intact, normal color <Rich Bocanegra - Last Filed: 11/20/20 01:36> Course Vital Signs 11/19/20 11/20/20 22:36 00:15 Temperature 97.4 F L Pulse Rate 82 81 Respiratory 16 16 Rate Blood Pressure 112/88 106/73 O2 Sat by Pulse 99 99 Oximetry Medical Decision Making - Lab Data Result diagrams: 11/20/20 00:03 11/20/20 00:03 <Rich Bocanegra - Last Filed: 11/20/20 01:36> - Lab Data Result diagrams: 11/22/20 07:35 11/23/20 07:27 <Alli Mullins - Last Filed: 11/24/20 00:29> - Medical Decision Making 75-year-old male with history of hypertension, dyslipidemia, COPD, diabetes presenting to the emergency department with a chief complaint of weakness. On physical examination, patient is resting possibly in bed. He does have clinical signs of dehydration. I reviewed his medical record which revealed cardiac catheterization on 10/30/[address] Jurado which revealed triple vessel disease and he was not a candidate for angioplasty. He was recommended to have an eval uation by cardiothoracic surgeon. Patient states she has an appointment Sunday but cannot recall the name of the physician he was going to see. Laboratory work reveals hypercalcemia with a calcium of 13.2. He also had an elevated BUN and creatinine of 42 and 2.53, respiratory. Patient was given 1.5 L of IV fluids. Will be started on maintenance fluids as well. Patient also had an elevated troponin of 5.5. EKG appeared rather similar to his most recent one from about [address] Cagle spoke with Dr. Larsen who recommended heparinizing the patient and admitted for further medical management. I discussed the case with who will admit. (Rich Bocanegra) I saw this patient in conjunction with the physician nurse's assistant. I performed independent history and physical exam. Agree with case management. (Alli Mullins) - Lab Data Lab Results 11/20/20 11/20/20 11/20/20 Range/Units 00:03 00:03 00:03 WBC 9.1 (3.8-10.6) k/uL RBC 4.71 (4.30-5.90) m/uL Hgb 14.8 (13.0-17.5) gm/dL Hct 45.0 (39.0-53.0) % MCV 95.4 (80.0-100.0) fL MCH 31.4 (25.0-35.0) pg MCHC 33.0 (31.0-37.0) g/dL RDW 13.8 (11.5-15.5) % Plt Count 157 (150-450) k/uL MPV 7.9 Neutrophils % 72 % Lymphocytes % 18 % Monocytes % 5 % Eosinophils % 3 % Basophils % 0 % Neutrophils # 6.6 (1.3-7.7) k/uL Lymphocytes # 1.7 (1.0-4.8) k/uL Monocytes # 0.4 (0-1.0) k/uL Eosinophils # 0.3 (0-0.7) k/uL Basophils # 0.0 (0-0.2) k/uL PT 10.9 (9.0-12.0) sec INR 1.0 (<1.2) APTT 17.0 L (22.0-30.0) sec Sodium 135 L (137-145) mmol/L Potassium 4.4 (3.5-5.1) mmol/L Chloride 98 (98-107) mmol/L Carbon Dioxide 25 (22-30) mmol/L Anion Gap 12 mmol/L BUN 46 H (9-20) mg/dL Creatinine 2.46 H (0.66-1.25) mg/dL Est GFR (CKD-EPI)AfAm 29 (>60 ml/min/1.73 sqM) Est GFR (CKD-EPI)NonAf 25 (>60 ml/min/1.73 sqM) Glucose 102 H (74-99) mg/dL Calcium 13.4 H* (8.4-10.2) mg/dL Phosphorus 2.6 (2.5-4.5) mg/dL Magnesium 1.5 L (1.6-2.3) mg/dL Total Bilirubin 0.9 (0.2-1.3) mg/dL AST 84 H (17-59) U/L ALT 26 (4-49) U/L Alkaline Phosphatase 72 (38-126) U/L Troponin I (0.000-0.034) ng/mL Total Protein 6.7 (6.3-8.2) g/dL Albumin 3.9 (3.5-5.0) g/dL TSH 2.800 (0.465-4.680) mIU/L Coronavirus (PCR) (Not Detectd) 11/20/20 11/20/20 Range/Units 00:03 01:40 WBC (3.8-10.6) k/uL RBC (4.30-5.90) m/uL Hgb (13.0-17.5) gm/dL Hct (39.0-53.0) % MCV (80.0-100.0) fL MCH (25.0-35.0) pg MCHC (31.0-37.0) g/dL RDW (11.5-15.5) % Plt Count (150-450) k/uL MPV Neutrophils % % Lymphocytes % % Monocytes % % Eosinophils % % Basophils % % Neutrophils # (1.3-7.7) k/uL Lymphocytes # (1.0-4.8) k/uL Monocytes # (0-1.0) k/uL Eosinophils # (0-0.7) k/uL Basophils # (0-0.2) k/uL PT (9.0-12.0) sec INR (<1.2) APTT (22.0-30.0) sec Sodium (137-145) mmol/L Potassium (3.5-5.1) mmol/L Chloride (98-107) mmol/L Carbon Dioxide (22-30) mmol/L Anion Gap mmol/L BUN (9-20) mg/dL Creatinine (0.66-1.25) mg/dL Est GFR (CKD-EPI)AfAm (>60 ml/min/1.73 sqM) Est GFR (CKD-EPI)NonAf (>60 ml/min/1.73 sqM) Glucose (74-99) mg/dL Calcium (8.4-10.2) mg/dL Phosphorus (2.5-4.5) mg/dL Magnesium (1.6-2.3) mg/dL Total Bilirubin (0.2-1.3) mg/dL AST (17-59) U/L ALT (4-49) U/L Alkaline Phosphatase (38-126) U/L Troponin I 5.570 H* (0.000-0.034) ng/mL Total Protein (6.3-8.2) g/dL Albumin (3.5-5.0) g/dL TSH (0.465-4.680) mIU/L Coronavirus (PCR) Not Detected (Not Detectd) Disposition Is patient prescribed a controlled substance at d/c from ED?: No Time of Disposition: 01:40 <Rich Bocanegra - Last Filed: 11/20/20 01:36> <Alli Mullins - Last Filed: 11/24/20 00:29> Clinical Impression: NSTEMI (non-ST elevated myocardial infarction), Acute kidney injury, Dehydration Disposition: ADMITTED IP TO THIS HOSP Condition: Good
[2020-11-20] MEDS ORDERED: SODIUM CHLORIDE 0.9% 1,000 ML IV STA (01:36)
[2020-11-20] MEDS ORDERED: SODIUM CHLORIDE 0.9% 500 ML 500 ML IV STA (01:36)
[2020-11-20] MEDS: HEPARIN SOD,PORK IN 0.45% NACL 25,000 UNIT in 0.45% NACL 1 250ML.BAG IV SCH (01:38)
[2020-11-20] MEDS ORDERED: NITROGLYCERIN SL TABS 0.4 MG TAB SUBLINGUAL PRN (01:40)
--- NOTE | 2020-11-20 03:59 | P.HPIM ---
History of Present Illness H&P Date: 11/19/20 Chief Complaint: Progressive shortness of breath and generalized weakness 75-year-old male complex past medical history got CK D, hypercalcemia, diabetes mellitus, 3 vessel coronary artery disease not a candidate for revascularization, systolic cardiomyopathy, COPD on home oxygen Patient has been struggling with progressive shortness of breath initially was exertional now even at rest for the past couple months he had extensive evaluation done early in October where he was found to have triple-vessel disease and new systolic cardiomyopathy with left ventricular ejection fraction of 4045 percent however he was not a candidate for revascularization and recommendations were made for bypass surgery. Patient was discharged at that time for outpatient evaluation and workup Patient comes in today reporting progressive shortness of breath his was concerned because his appetite has been decreasing he only drinks some [place] juice every day he can't eat any solid food as he starts throwing up and feeling nauseous. He's been losing weight and feeling very weak and tired his shortness of breath has progressed to a point where he gets exertional dyspnea with the slightest activity and at times he gets short of breath even at rest while doing nothing. He is currently on supplemental oxygen for COPD he used to be smoking he quit about 12 years ago. Otherwise he currently denies any chest pain dizziness diaphoresis or any syncopal episodes. He has been taking his medications as prescribed. In the ED his workup showed elevated troponins no acute ST changes on EKG cardiology was contacted recommended heparinization and admission for evaluation. His blood work also showed worsening renal function and hypercalcemia and hypomagnesemia patient was given some IV fluid diuretics were held. Otherwise he denies any GI bleeding fevers chills abdominal pain changes in his bowel or urinary habits Review of Systems Pertinent positives as noted in HPI. All other systems were reviewed and are negative Past Medical History Past Medical History: COPD, Diabetes Mellitus, Hyperlipidemia, Hypertension Additional Past Medical History / Comment(s): Neuropathy, diverticulosis History of Any Multi-Drug Resistant Organisms: None Reported Past Surgical History: Appendectomy, Hernia Repair, Orthopedic Surgery, Tonsi llectomy Additional Past Surgical History / Comment(s): Right Rotator Cuff repair Past Anesthesia/Blood Transfusion Reactions: No Reported Reaction Past Psychological History: PTSD Smoking Status: Former smoker Past Alcohol Use History: None Reported Past Drug Use History: None Reported - Past Family History family Additional Family Medical History / Comment(s): Alzheimer Medications and Allergies Home Medications Medication Instructions Recorded Confirmed Type Multivitamins, Thera [Multivitamin 1 tab PO DAILY 08/13/19 10/28/20 History (formulary)] Pioglitazone HCl/Metformin HCl 1 tab PO BID 08/13/19 10/28/20 History [Pioglitazone-Metformin 15850] Albuterol Inhaler [Ventolin Hfa 2 puff INHALATION RT-Q4H PRN 10/28/20 10/28/20 History Inhaler] Aspirin 81 mg PO DAILY 30 Days #30 tab 10/31/20 Rx Atorvastatin [Lipitor] 80 mg PO HS 30 Days #30 tab 10/31/20 Rx Clopidogrel [Plavix] 75 mg PO DAILY 30 Days #30 tab 10/31/20 Rx Magnesium Oxide [Mag-Ox] 400 mg PO DAILY 30 Days #30 tablet 10/31/20 Rx Spironolactone [Aldactone] 25 mg PO DAILY 30 Days #30 tablet 10/31/20 Rx lisinopriL [Zestril] 5 mg PO DAILY 30 Days #30 tab 10/31/20 Rx Allergies Allergy/AdvReac Type Severity Reaction Status Date / Time Sulfa (Sulfonamide Allergy Severe Anaphylaxis Verified 10/28/20 14:41 Antibiotics) erythromycin base Allergy Unknown Unknown Verified 10/28/20 14:41 Mushroom Allergy Anaphylaxis Verified 10/28/20 14:41 Physical Exam Vitals: Vital Signs Temp Pulse Resp BP Pulse Ox 11/20/20 00:15 81 16 106/73 99 11/19/20 22:36 97.4 F L 82 16 112/88 99 Intake and Output 11/19/20 11/19/20 11/20/20 14:59 22:59 06:59 Other: Weight 72.575 kg Constitutional: No acute distress, conversant, pleasant Eyes: Anicteric sclerae, moist conjunctiva, Pupils equal round reactive to light ENMT: NC/AT Oropharynx clear, no erythema, or exudates Neck: Supple, FROM, no masses, or JVD No carotid bruits No thyromegaly Lungs: Good air entry throughout with prolonged expiratory phase and end expiratory wheezing Clear to percussion Normal respiratory effort, no accessory muscle use Cardiovascular: Heart regular in rate and rhythm, No murmurs, gallops, or rubs No peripheral edema Abdominal: Soft Nontender, no guarding, rebound or rigidity Abdomen moving with respiration Normoactive bowel sounds No hepatomegaly, No splenomegaly No palpable mass No abdominal wall hernia noted Skin: Normal temperature, tone, texture, turgor No induration No subcutaneous nodules No rash, lesions No ulcers Extremities: No digital cyanosis No clubbing Pedal pulses intact and symmetrical Radial pulses intact and symmetrical No calf tenderness Psychiatric: Alert and oriented to person, place and time Appropriate affect fair judgement Neuro Muscles Strength 5/5 in all 4 extremities Sensation to light touch grossly present throughout Cranial nerves II-XII grossly intact No focal sensory deficits Lymphatics: no palpable cervical or supraclavicular , or inguinal lymph nodes Results CBC & Chem 7: 11/20/20 00:03 11/20/20 00:03 Labs: Abnormal Lab Results - Last 24 Hours (Table) 11/20/20 11/20/20 11/20/20 Range/Units 00:03 00:03 00:03 APTT 17.0 L (22.0-30.0) sec Sodium 135 L (137-145) mmol/L BUN 46 H (9-20) mg/dL Creatinine 2.46 H (0.66-1.25) mg/dL Glucose 102 H (74-99) mg/dL Calcium 13.4 H* (8.4-10.2) mg/dL Magnesium 1.5 L (1.6-2.3) mg/dL AST 84 H (17-59) U/L Troponin I 5.570 H* (0.000-0.034) ng/mL Assessment and Plan Assessment: NSTEMI Cardiology aware recommended heparinization Continue with aspirin and statin Cardiac monitoring Trend troponins Patient is known to have triple-vessel disease not a candidate for revascularization per cardiology most recent left heart cath Patient would like to discuss options of bypass surgery Pain control Supplemental oxygen as needed Resume home cardiac meds Chronic conditions Systolic cardiomyopathy currently compensated Left ventricular ejection fraction 40-45% Acute kidney injury on CK D Avoid nephrotoxic meds Hold diuretics Gentle IV fluid hydration Monitor urine output and renal function Hypomagnesemia replace and follow-up levels Hypercalcemia Avoid hydrochlorothiazide IV fluid hydration with normal saline Repeat calcium level in the morning Diabetes mellitus Insulin sliding scale COPD on home oxygen 2 L, compensated Breathing treatments as needed Supplemental oxygen Patient is full code Currently on heparin drip for ACS Anticipated length of stay more than 2 midnights Anticipated discharge home
[2020-11-20] MEDS ORDERED: IPRATROPIUM-ALBUTEROL 3 ML NEB INHALATION PRN (04:01)
[2020-11-20 05:51] LABS: Glucose,Whole Blood 85 mg/dL (75-99)
[2020-11-20] MEDS: INSULIN ASPART (NovoLOG) 100 UNIT/ML VIAL SQ SCH ×4 (06:38→21:25)
[2020-11-20] MEDS: SODIUM CHLORIDE 0.9% 1,000 ML IV SCH ×2 (07:43→14:04)
[2020-11-20] MEDS: lisinopriL 5 MG TAB PO SCH (08:34)
[2020-11-20] MEDS: CLOPIDOGREL 75 MG TAB PO SCH (08:34)
[2020-11-20] MEDS ORDERED: SPIRONOLACTONE 25 MG TAB PO SCH (09:00)
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
[2020-11-20 11:41] LABS: Glucose,Whole Blood 88 mg/dL (75-99)
--- NOTE | 2020-11-20 13:51 | P.PN ---
Progress Note - Text Progress Note Date: 11/20/20 I saw and evaluated the patient independently. I agree with the documented assessment and plan by my colleague earlier this morning.
[2020-11-20 17:13] LABS: Glucose,Whole Blood 94 mg/dL (75-99)
[2020-11-20 21:24] LABS: Glucose,Whole Blood 98 mg/dL (75-99)
[2020-11-20] MEDS: ATORVASTATIN 80 MG TAB PO SCH (21:25)
[2020-11-20 23:54] LABS: Appearance,Urine Clear (Clear); Bilirubin,Urine Negative (Negative); Blood,Urine Negative (Negative); Color,Urine Yellow; Glucose,Urine (UA) Negative (Negative); Ketones,Urine 1+ (Negative); Leukocyte Esterase,Urine Negative (Negative); Nitrite,Urine Negative (Negative); PH, Urine 5.5 (5.0-8.0); Protein,Urine Trace (Negative); Specific Gravity,Urine 1.016 (1.001-1.035); Urobilinogen,Urine <2.0 mg/dL (<2.0)
[2020-11-21 06:13] LABS: Glucose,Whole Blood 80 mg/dL (75-99)
[2020-11-21 06:15] LABS: Basophils % (A) 1 %; Eosinophils # (A) 0.5 k/uL (0-0.7); Eosinophils % (A) 7 %; HCT 41.5 % (39.0-53.0); HGB 13.7 gm/dL (13.0-17.5); Lymphocytes # (A) 1.2 k/uL (1.0-4.8); Lymphocytes % (A) 16 %; MCH 31.7 pg (25.0-35.0); MCHC 33.1 g/dL (31.0-37.0); MCV 95.7 fL (80.0-100.0); Mean Platelet Volume 7.5; Monocytes # (A) 0.4 k/uL (0-1.0); Monocytes % (A) 5 %; Neutrophils # (A) 5.6 k/uL (1.3-7.7); Neutrophils % (A) 71 %; Platelet Count 134 k/uL (150-450); RBC 4.33 m/uL (4.30-5.90); RDW 13.9 % (11.5-15.5); WBC 7.8 k/uL (3.8-10.6)
[2020-11-21] MEDS: INSULIN ASPART (NovoLOG) 100 UNIT/ML VIAL SQ SCH ×4 (06:15→22:09)
[2020-11-21 06:24] LABS: INR 1.1 (<1.2); Partial Thromboplastin Time 76.5 sec (22.0-30.0); Prothrombin Time 11.7 sec (9.0-12.0)
[2020-11-21] MEDS: HEPARIN SOD,PORK IN 0.45% NACL 25,000 UNIT in 0.45% NACL 1 250ML.BAG IV SCH ×2 (07:35→08:28)
[2020-11-21] MEDS: SODIUM CHLORIDE 0.9% 1,000 ML IV SCH ×2 (07:35→08:30)
[2020-11-21] MEDS: lisinopriL 5 MG TAB PO SCH (08:28)
[2020-11-21] MEDS: CLOPIDOGREL 75 MG TAB PO SCH (08:28)
[2020-11-21] MEDS: ASPIRIN 81 MG PO SCH (08:28)
[2020-11-21] MEDS ORDERED: ASPIRIN 325 MG TAB PO SCH (09:00)
--- NOTE | 2020-11-21 10:09 | P.PN ---
Subjective Progress Note Date: 11/21/20 No new complaints. Pain has resolved. Pt still on heparin. Pt wondering why he cannot get a PCI to fix his heart issues. Objective - Vital Signs Vital signs: Vital Signs Temp 97.6 F 11/21/20 08:00 Pulse 74 11/21/20 08:00 Resp 17 11/21/20 08:00 BP 110/64 11/21/20 08:00 Pulse Ox 99 11/21/20 08:00 Intake & Output 11/20/20 11/21/20 11/21/20 18:59 06:59 18:59 Intake Total 358 250 Output Total 350 275 Balance 8 -25 Weight 73.7 kg Intake: Intake, IV Titration 250 Amount Heparin Sod,Pork in 0.45% 250 NaCl 25,000 unit In 0.45 % NaCl 1 250ml.bag @ 12 UNITS/KG/HR 8.709 mls/hr IV .Q24H ROBERT Rx#: [id number] Oral 358 Output: Urine 275 Urine/Stool Mix 350 Other: # Voids 1 0 # Bowel Movements 1 - Exam Gen: awake, alert HEENT: normocephalic, atraumatic, good hearing acuity, moist mucous membranes Resp: good air exchange, breathing comfortably with no accessory muscle use CVS: good distal perfusion x 4, GI: soft, NTTP, ND : no SPT, no CVAT, shah catheter not present MSK: no pitting edema, no clubbing Neuro: non-focal, moving all extremities Psych: cooperative, euthymic mood - Labs CBC & Chem 7: 11/21/20 05:56 11/20/20 00:03 Labs: Abnormal Lab Results - Last 24 Hours (Table) 11/20/20 11/20/20 11/21/20 Range/Units 00:03 21:30 05:56 Plt Count 134 L (150-450) k/uL APTT 17.0 L (22.0-30.0) sec Urine Protein Trace H (Negative) Urine Ketones 1+ H (Negative) 11/21/20 Range/Units 05:56 Plt Count (150-450) k/uL APTT 76.5 H (22.0-30.0) sec Urine Protein (Negative) Urine Ketones (Negative) Assessment and Plan Assessment: NSTEMI - Cardiology aware recommended heparinization - Continue with aspirin and statin - Cardiac monitoring - Trend troponins - Pain control - Supplemental oxygen as needed - Resume home cardiac meds - Recent [facility]: -left main 50% -RCA 50%; PDA 2 x tandem 80-90% lesions -LAD 80% -LCx 99% -lesions are all quite calcified and do not appear to be soft plaque amenable to PCI Acute kidney injury on CKD - Avoid nephrotoxic meds - Hold diuretics - Gentle IV fluid hydration -stop IVF 11/21 - Monitor urine output and renal function Hypercalcemia - Avoid hydrochlorothiazide - Repeat calcium level in the morning Chronic Systolic Heart Failure, EF 40-45% Diabetes mellitus COPD on home oxygen 2 L, compensated - Insulin sliding scale - Breathing treatments as needed - Supplemental oxygen Patient is full code Currently on heparin drip for ACS Anticipated length of stay more than 2 midnights Anticipated discharge home
[2020-11-21 10:29] LABS: Chol/HDL Ratio 2.94; LDL Cholesterol,Calculated 33.8 mg/dL (0.0-131.0); VLDL Calculation 28.2 mg/dL (5.00-40.00)
[2020-11-21 11:50] LABS: Glucose,Whole Blood 108 mg/dL (75-99)
[2020-11-21 14:07] LABS: Calcium 11.8 mg/dL (8.4-10.2)
--- NOTE | 2020-11-21 14:15 | P.PN ---
Subjective Progress Note Date: 11/21/20 History of present illness: This is 75-year-old male patient with past medical history of CKD, hypercalcem ia, diabetes mellitus, 3 vessel coronary artery disease, systolic cardiomyopathy, COPD on home oxygen. Patient had a recent hospitalization earlier this month and was seen by Dr. Jurado at that time for acute non-ST elevated myocardial infarction and AV block second degree type I. He had a heart catheterization that revealed severe three-vessel coronary artery disease. Vascular surgery evaluated the patient and determined the patient was not a good candidate for surgical revascularization and recommended maximizing medical therapy. Patient was started on Plavix, Aldactone, aspirin atorvastatin and lisinopril. Patient comes in today reporting progressive shortness of breath along with decreased appetite and not eating well for the past 2 weeks, intermittent vomiting for the past 2 days, generalized weakness. He denies having any chest pain, lightheadedness, dizziness, palpitations. He has been losing weight and feeling very weak and tired his shortness of breath with exertional dyspnea with the minimal activity. He was a smoker and quit about 12 years ago. Otherwise he currently denies any chest pain dizziness diaphoresis or any syncopal episodes. He has been taking his medications as prescribed. Patient was found to be afebrile, heart rate in the 80s, blood pressure 112/88, pulse ox 99% on room air. 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 CBC was unremarkable. BUN 46 and creatinine 2.46. Blood sugar 102. Magnesium 1.5 potassium 4.4. AST 84. TSH 2.8. Troponins 5.570 and 5.420. Patient is status post 2.5 L of IV fluid, started on heparin drip and resumed on home medications except for Aldactone was not resumed. 11/21: Patient denies having any chest pain or shortness of breath. His heart rate is running in the 40s and 50s with a first-degree block. Renal function is improved from yesterday with BUN 32 and creatinine 1.71, potassium 4.0. Triglycerides 141, cholesterol 94, LDL 33, HDL 32. Heparin drip will be discontinued. Physical examination: Gen: This is a 75-year-old male, he is resting in bed appears to be in no acute distress. VS: Afebrile, heart rate 67, blood pressure 118/81, pulse ox 97% on 4 L nasal cannula. HEENT: Head is atraumatic, normocephalic. Pupils equal, round. 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 NECK: Supple. No JVD. No lymphadenopathy. No thyromegaly. LUNGS: Diminished bilaterally with scattered expiratory wheeze. Prolonged expiratory phase. No intercostal retractions. HEART: Regular rate and rhythm. Systolic murmur. ABDOMEN: Soft. Bowel sounds are present. No masses. No tenderness. EXTREMITIES: No pedal edema. No calf tenderness. NEUROLOGICAL: Patient is awake, alert and oriented x3. Cranial nerves 2 through 12 are grossly intact. Assessment: Elevated troponins related to acute kidney injury Recent non-ST elevated myocardial infarction status post heart catheterization finding three-vessel coronary disease, not candidate for revascularization First-degree heart block Chronic kidney disease Diabetes mellitus type 2 Cardiomyopathy COPD Chronic hypoxic respiratory failure on home O2 Plan: No need to repeat echocardiogram. Patient is not currently on any beta blockers. Discontinue heparin drip Continue aspirin 81 mg daily, Lipitor 80 mg at bedtime, Plavix 75 mg daily, lisinopril 5 mg daily Further recommendations to follow based upon clinical course Thank you kindly for this consultation. Nurse practitioner note has been reviewed, I agree with documented findings and plan of care. Patient was seen and examined. Objective - Vital Signs Vital signs: Vital Signs Temp 97.6 F 11/21/20 08:00 Pulse 74 11/21/20 08:00 Resp 17 11/21/20 08:00 BP 110/64 11/21/20 08:00 Pulse Ox 99 11/21/20 08:00 Intake & Output 11/20/20 11/21/20 11/21/20 18:59 06:59 18:59 Intake Total 358 250 Output Total 350 275 Balance 8 -25 Weight 73.7 kg Intake: Intake, IV Titration 250 Amount Heparin Sod,Pork in 0.45% 250 NaCl 25,000 unit In 0.45 % NaCl 1 250ml.bag @ 12 UNITS/KG/HR 8.709 mls/hr IV .Q24H ROBERT Rx#: [id number] Oral 358 Output: Urine 275 Urine/Stool Mix 350 Other: # Voids 1 0 # Bowel Movements 1 - Labs CBC & Chem 7: 11/21/20 05:56 11/21/20 12:44 Labs: Abnormal Lab Results - Last 24 Hours (Table) 11/20/20 11/20/20 11/21/20 Range/Units 00:03 21:30 05:56 Plt Count 134 L (150-450) k/uL APTT 17.0 L (22.0-30.0) sec HDL Cholesterol (40.0-60.0) mg/dL Urine Protein Trace H (Negative) Urine Ketones 1+ H (Negative) 11/21/20 11/21/20 Range/Units 05:56 05:56 Plt Count (150-450) k/uL APTT 76.5 H (22.0-30.0) sec HDL Cholesterol 32.0 L (40.0-60.0) mg/dL Urine Protein (Negative) Urine Ketones (Negative)
[2020-11-21 16:21] LABS: Glucose,Whole Blood 86 mg/dL (75-99)
[2020-11-21] MEDS: ATORVASTATIN 80 MG TAB PO SCH (20:01)
[2020-11-21 21:05] LABS: Glucose,Whole Blood 101 mg/dL (75-99)
[2020-11-22 06:45] LABS: Glucose,Whole Blood 90 mg/dL (75-99)
[2020-11-22] MEDS: INSULIN ASPART (NovoLOG) 100 UNIT/ML VIAL SQ SCH ×4 (06:53→20:54)
[2020-11-22 08:25] LABS: Calcium 11.1 mg/dL (8.4-10.2); Magnesium 1.1 mg/dL (1.6-2.3); Potassium 3.5 mmol/L (3.5-5.1)
[2020-11-22] MEDS: SODIUM CHLORIDE 0.9% 1,000 ML IV SCH ×3 (08:28→09:00)
[2020-11-22 08:57] LABS: Basophils % (A) 1 %; Eosinophils # (A) 0.3 k/uL (0-0.7); Eosinophils % (A) 6 %; HCT 37.8 % (39.0-53.0); HGB 13.4 gm/dL (13.0-17.5); Lymphocytes % (A) 20 %; MCH 33.3 pg (25.0-35.0); MCHC 35.5 g/dL (31.0-37.0); MCV 93.8 fL (80.0-100.0); Mean Platelet Volume 8.3; Monocytes # (A) 0.2 k/uL (0-1.0); Monocytes % (A) 5 %; Neutrophils # (A) 3.4 k/uL (1.3-7.7); Neutrophils % (A) 68 %; Platelet Count 121 k/uL (150-450); RBC 4.03 m/uL (4.30-5.90); RDW 14.3 % (11.5-15.5)
[2020-11-22] MEDS: lisinopriL 5 MG TAB PO SCH (09:00)
[2020-11-22] MEDS: CLOPIDOGREL 75 MG TAB PO SCH (09:00)
[2020-11-22] MEDS: ASPIRIN 81 MG PO SCH (09:00)
[2020-11-22] MEDS ORDERED: SODIUM CHLORIDE 0.9% 1,000 ML IV STA (10:51)
[2020-11-22 11:51] LABS: Glucose,Whole Blood 89 mg/dL (75-99)
[2020-11-22] MEDS: ISOSORBIDE MONONITRATE ER 30 MG TAB.ER.24H PO SCH (12:45)
[2020-11-22] MEDS: RANOLAZINE 500 MG TAB.ER.12H PO SCH ×2 (12:45→21:01)
[2020-11-22] MEDS ORDERED: Magnesium Replacement Protocol 1 EACH MISC MISCELLANE PRN (13:01)
--- NOTE | 2020-11-22 13:07 | P.PN ---
Subjective History of present illness: This is 75-year-old male patient with past medical history of CKD, hypercalcemia, diabetes mellitus, 3 vessel coronary artery disease, systolic cardiomyopathy, COPD on home oxygen. Patient had a recent hospitalization [facility] this month and was seen by Dr. Jurado at that time for acute non-ST elevated myocardial infarction and AV block second degree type I. He had a heart catheterization that revealed severe three-vessel coronary artery disease. Vascular surgery evaluated the patient and determined the patient was not a good candidate for surgical revascularization and recommended maximizing medical therapy. Patient was started on Plavix, Aldactone, aspirin atorvastatin and lisinopril. 11/22/2020 Pt seen and examined sitting up in bed in no acute distress. He states he still feels short of breath with activity. He denies chest pain, dizziness or palpitations. Telemetry tracings reviewed, he is having some intermittent episodes of second degree AV block type I. Blood pressure 127/72 heart rate 60 afebrile and maintaining oxygen saturation on nasal cannula. Laboratory data reviewed, WBC 5, hemoglobin 13.4, platelets 121, sodium 138, potassium 3.5, creatinine 1.48 magnesium 1.1. Currently maintained on aspirin 81 mg daily, atorvastatin 80 mg daily, Plavix 75 mg daily and lisinopril 5 mg daily. Physical examination: Gen: This is a 75-year-old male, he is resting in bed appears to be in no acute distress. HEENT: Head is atraumatic, normocephalic. Pupils equal, round. Sclerae is anicteric. NECK: Supple. No JVD. No lymphadenopathy. No thyromegaly. LUNGS: Diminished bilaterally, expiratory wheezes. No intercostal retractions. HEART: Regular rate and rhythm. Systolic murmur. EXTREMITIES: No pedal edema. No calf tenderness. Assessment: Elevated troponins related to acute kidney injury Recent non-ST elevated myocardial infarction status post heart catheterization finding three-vessel coronary disease, not candidate for revascularization Second degree type I heart block Hypomagnesemia Chronic kidney disease Diabetes mellitus type 2 Cardiomyopathy COPD Chronic hypoxic respiratory failure on home O2 Plan: Replace magnesium per protocol. Repeat BMP in the morning. Continue aspirin 81 mg daily, Lipitor 80 mg at bedtime, Plavix 75 mg daily, lisinopril 5 mg daily Add ranexa 500 mg BID and imdur 30 mg daily to his regimen. Dr. Villa will review the cath films and discuss with Dr. Jurado. Further recommendations to follow. Nurse practitioner note has been reviewed, I agree with documented findings and plan of care. Patient was seen and examined. Objective - Vital Signs Vital signs: Vital Signs Temp 96.8 F L 11/22/20 11:35 Pulse 60 11/22/20 11:35 Resp 16 11/22/20 11:35 BP 127/71 11/22/20 11:35 Pulse Ox 97 11/22/20 11:35 Intake & Output 11/21/20 11/22/20 11/22/20 18:59 06:59 18:59 Intake Total 1168 0 Output Total 525 250 Balance 643 -250 Weight 73.4 kg Intake: Intake, IV Titration 1050 Amount Heparin Sod,Pork in 0.45% 250 NaCl 25,000 unit In 0.45 % NaCl 1 250ml.bag @ 12 UNITS/KG/HR 8.709 mls/hr IV .Q24H ROBERT Rx#: [id number] Sodium Chloride 0.9% 1, 800 000 ml @ 100 mls/hr IV . Q10H ROBERT Rx#:[id number] Oral 118 0 Output: Urine 525 250 - Labs CBC & Chem 7: 11/22/20 07:35 11/22/20 07:35 Labs: Abnormal Lab Results - Last 24 Hours (Table) 11/21/20 11/21/20 11/21/20 Range/Units 12:44 12:44 20:57 RBC (4.30-5.90) m/uL Hct (39.0-53.0) % Plt Count (150-450) k/uL APTT 62.8 H (22.0-30.0) sec Sodium 136 L (137-145) mmol/L Chloride (98-107) mmol/L BUN 32 H (9-20) mg/dL Creatinine 1.71 H (0.66-1.25) mg/dL Glucose 110 H (74-99) mg/dL POC Glucose (mg/dL) 101 H (75-99) mg/dL Calcium 11.8 H (8.4-10.2) mg/dL Magnesium (1.6-2.3) mg/dL 11/22/20 11/22/20 Range/Units 07:35 07:35 RBC 4.03 L (4.30-5.90) m/uL Hct 37.8 L (39.0-53.0) % Plt Count 121 L (150-450) k/uL APTT (22.0-30.0) sec Sodium (137-145) mmol/L Chloride 108 H (98-107) mmol/L BUN 23 H (9-20) mg/dL Creatinine 1.48 H (0.66-1.25) mg/dL Glucose (74-99) mg/dL POC Glucose (mg/dL) (75-99) mg/dL Calcium 11.1 H (8.4-10.2) mg/dL Magnesium 1.1 L (1.6-2.3) mg/dL
--- NOTE | 2020-11-22 13:50 | P.PN ---
Subjective Progress Note Date: 11/22/20 No new complaints today. Denies cp, palps. Ongoing dyspnea on exertion. Objective - Vital Signs Vital signs: Vital Signs Temp 96.8 F L 11/22/20 11:35 Pulse 60 11/22/20 11:35 Resp 16 11/22/20 11:35 BP 127/71 11/22/20 11:35 Pulse Ox 97 11/22/20 11:35 Intake & Output 11/21/20 11/22/20 11/22/20 18:59 06:59 18:59 Intake Total 1168 0 Output Total 525 250 Balance 643 -250 Weight 73.4 kg Intake: Intake, IV Titration 1050 Amount Heparin Sod,Pork in 0.45% 250 NaCl 25,000 unit In 0.45 % NaCl 1 250ml.bag @ 12 UNITS/KG/HR 8.709 mls/hr IV .Q24H ROBERT Rx#: [id number] Sodium Chloride 0.9% 1, 800 000 ml @ 100 mls/hr IV . Q10H ROBERT Rx#:[id number] Oral 118 0 Output: Urine 525 250 - Exam Gen: awake, alert HEENT: normocephalic, atraumatic, good hearing acuity, moist mucous membranes Resp: good air exchange, breathing comfortably with no accessory muscle use CVS: good distal perfusion x 4, GI: soft, NTTP, ND : no SPT, no CVAT, shah catheter not present MSK: no pitting edema, no clubbing Neuro: non-focal, moving all extremities Psych: cooperative, euthymic mood - Labs CBC & Chem 7: 11/22/20 07:35 11/22/20 07:35 Labs: Abnormal Lab Results - Last 24 Hours (Table) 11/21/20 11/21/20 11/21/20 Range/Units 12:44 12:44 20:57 RBC (4.30-5.90) m/uL Hct (39.0-53.0) % Plt Count (150-450) k/uL APTT 62.8 H (22.0-30.0) sec Sodium 136 L (137-145) mmol/L Chloride (98-107) mmol/L BUN 32 H (9-20) mg/dL Creatinine 1.71 H (0.66-1.25) mg/dL Glucose 110 H (74-99) mg/dL POC Glucose (mg/dL) 101 H (75-99) mg/dL Calcium 11.8 H (8.4-10.2) mg/dL Magnesium (1.6-2.3) mg/dL 11/22/20 11/22/20 Range/Units 07:35 07:35 RBC 4.03 L (4.30-5.90) m/uL Hct 37.8 L (39.0-53.0) % Plt Count 121 L (150-450) k/uL APTT (22.0-30.0) sec Sodium (137-145) mmol/L Chloride 108 H (98-107) mmol/L BUN 23 H (9-20) mg/dL Creatinine 1.48 H (0.66-1.25) mg/dL Glucose (74-99) mg/dL POC Glucose (mg/dL) (75-99) mg/dL Calcium 11.1 H (8.4-10.2) mg/dL Magnesium 1.1 L (1.6-2.3) mg/dL Assessment and Plan Assessment: NSTEMI - Cardiology aware recommended heparinization, dc'd today - Continue with aspirin and statin, lisinopril - Cardiac monitoring - Trend troponins - Pain control - Supplemental oxygen as needed - Resume home cardiac meds - added ranexa and imdur - Recent [facility]: -left main 50% -RCA 50%; PDA 2 x tandem 80-90% lesions -LAD 80% -LCx 99% -lesions are all quite calcified Acute kidney injury on CKD - Avoid nephrotoxic meds - Hold diuretics - Gentle IV fluid hydration -stop IVF 11/21 - Monitor urine output and renal function Hypercalcemia - Avoid hydrochlorothiazide - Repeat calcium level in the morning Chronic Systolic Heart Failure, EF 40-45% Diabetes mellitus COPD on home oxygen 2 L, compensated - Insulin sliding scale - Breathing treatments as needed - Supplemental oxygen Patient is full code Currently on heparin drip for ACS Anticipated length of stay more than 2 midnights Anticipated discharge home
[2020-11-22] MEDS: MAGNESIUM SULFATE-D5W PMX 1 GM in DEXTROSE/WATER 1 100ML.BAG IVPB SCH ×3 (14:41→18:14)
[2020-11-22 17:16] LABS: Glucose,Whole Blood 112 mg/dL (75-99)
[2020-11-22 20:18] LABS: Glucose,Whole Blood 121 mg/dL (75-99)
[2020-11-22] MEDS: ATORVASTATIN 80 MG TAB PO SCH (21:02)
[2020-11-23 06:13] VITALS: TEMP 97.8
[2020-11-23 06:21] LABS: Glucose,Whole Blood 98 mg/dL (75-99)
[2020-11-23] MEDS: INSULIN ASPART (NovoLOG) 100 UNIT/ML VIAL SQ SCH ×2 (06:21→12:28)
[2020-11-23 07:57] LABS: Calcium 10.2 mg/dL (8.4-10.2); Magnesium 1.6 mg/dL (1.6-2.3); Potassium 3.5 mmol/L (3.5-5.1)
[2020-11-23] MEDS: ASPIRIN 81 MG PO SCH (09:45)
[2020-11-23] MEDS: RANOLAZINE 500 MG TAB.ER.12H PO SCH (09:46)
[2020-11-23] MEDS: ISOSORBIDE MONONITRATE ER 30 MG TAB.ER.24H PO SCH (09:46)
[2020-11-23] MEDS: lisinopriL 5 MG TAB PO SCH (09:46)
[2020-11-23] MEDS: CLOPIDOGREL 75 MG TAB PO SCH (09:46)
--- NOTE | 2020-11-23 10:11 | P.PN ---
Subjective History of present illness: This is 75-year-old male patient with past medical history of CKD, hypercalcemia, diabetes mellitus, 3 vessel coronary artery disease, systolic cardiomyopathy, COPD on home oxygen. Patient had a recent hospitalization [facility] this month and was seen by Dr. Jurado at that time for acute non-ST elevated myocardial infarction and AV block second degree type I. He had a heart catheterization that revealed severe three-vessel coronary artery disease. Vascular surgery evaluated the patient and determined the patient was not a good candidate for surgical revascularization and recommended maximizing medical therapy. Patient was started on Plavix, Aldactone, aspirin atorvastatin and lisinopril. 11/23/2020 Patient seen and examined sitting up in bed in no acute distress. He denies any worsening shortness of breath. He has had no symptoms of chest discomfort. Telemetry tracings reviewed. No significant pauses or AV block noted. Blood pressure 132/70 heart rate 72 afebrile maintaining oxygen saturation on nasal cannula. Laboratory data reviewed, sodium 138, potassium 3.5, creatinine 1.5 and magnesium 1.6. Currently maintained on Imdur 30 mg daily, Ranexa 500 mg twice a day, aspirin 81 mg daily, atorvastatin 80 mg daily, Plavix 75 mg daily and lisinopril 5 mg daily. Physical examination: Gen: This is a 75-year-old male, he is resting in bed appears to be in no acute distress. HEENT: Head is atraumatic, normocephalic. Pupils equal, round. Sclerae is anicteric. NECK: Supple. No JVD. No lymphadenopathy. No thyromegaly. LUNGS: Diminished bilaterally, expiratory wheezes. No intercostal retractions. HEART: Regular rate and rhythm. Systolic murmur. EXTREMITIES: No pedal edema. No calf tenderness. Assessment: Elevated troponins related to acute kidney injury Recent non-ST elevated myocardial infarction status post heart catheterization finding three-vessel coronary disease, not candidate for revascularization Second degree type I heart block Hypomagnesemia Chronic kidney disease Diabetes mellitus type 2 Cardiomyopathy COPD Chronic hypoxic respiratory failure on home O2 Plan: Recent cardiac catheterization films reviewed personally by Dr. Villa. Arteries appear significantly calcified and not likely amenable to PCI due to heavy calcification. Therefore, he recommends ongoing maximal medical therapy. This was discussed with the patient in great detail. We recommend following up with Dr. Jurado in the office for further evaluation on maximum medical therapy. Nurse practitioner note has been reviewed, I agree with documented findings and plan of care. Patient was seen and examined. Objective - Vital Signs Vital signs: Vital Signs Temp 97.8 F 11/23/20 09:44 Pulse 72 11/23/20 09:44 Resp 16 11/23/20 09:44 BP 132/70 11/23/20 09:44 Pulse Ox 92 L 11/23/20 09:44 Intake & Output 11/22/20 11/23/20 11/23/20 18:59 06:59 18:59 Intake Total 358 Output Total 650 800 Balance -292 -800 Weight 75.6 kg Intake: Oral 358 Output: Urine 650 800 Other: # Voids 2 - Labs CBC & Chem 7: 11/22/20 07:35 11/23/20 07:27 Labs: Abnormal Lab Results - Last 24 Hours (Table) 11/22/20 11/22/20 11/23/20 Range/Units 17:10 20:17 07:27 Chloride 109 H (98-107) mmol/L Creatinine 1.50 H (0.66-1.25) mg/dL Glucose 101 H (74-99) mg/dL POC Glucose (mg/dL) 112 H 121 H (75-99) mg/dL
[2020-11-23 12:06] LABS: Glucose,Whole Blood 109 mg/dL (75-99)
[2020-11-23 12:13] VITALS: BP 118/69; PULSE 73; RESP 19
--- NOTE | 2020-11-23 15:32 | P.DS ---
Providers Date of admission: 11/20/20 02:30 Expected date of discharge: 11/23/20 Attending physician: Martina Lenz MD Consults: 11/20/20 01:40 Consult Physician Urgent Consulting Provider: Alma Delia Larsen Consult Reason/Comments: Acute kidney injury,NSTEMI Do you want consulting provider notified?: Yes Primary care physician: Adam Damian [facility] Course: NSTEMI Patient admitted with NSTEMI with cardiology consult. Troponins elevated to 3.4. Pt treated with max medical therapy. Pt treated with hep gtt, asa, statin. Cardiology recommended initiation of ranexa and imdur. Pts complex coronary anatomy was reviewed by cardiology team, and did not recommend PCI at this time. Patient may be amenable to PCI to PDA of RCA if no improvement with max medical therapy. Pt to f/u in 1 week for re-evaluation in cardiology clinic. on discharge patient was not c/o pain; dyspnea on exertion had improved. Pt understood plan of care and was agreeable. Acute kidney injury on CKD - Avoided nephrotoxic meds, held diuretics, provided gentle IV hydration. ALBERTO resolved. D/c'd spironolactone on d/c med rec. Hypercalcemia - Resolved with IVF Chronic Systolic Heart Failure, EF 40-45% Diabetes mellitus COPD on home oxygen 2 L, compensated - No changes to d/c medications for above issues, except for discontinuation of spironolactone as above. I spent 38 minutes coordinating this complex discharge Assessment: Gen: awake, alert HEENT: normocephalic, atraumatic, good hearing acuity, moist mucous membranes Resp: good air exchange, breathing comfortably with no accessory muscle use CVS: good distal perfusion x 4, GI: soft, NTTP, ND : no SPT, no CVAT, shah catheter not present MSK: no pitting edema, no clubbing Neuro: non-focal, moving all extremities Psych: cooperative, euthymic mood Patient Condition at Discharge: Good Plan - Discharge Summary New Discharge Prescriptions: New Isosorbide Mononitrate ER [Imdur] 30 mg PO DAILY #30 tablet Nitroglycerin Sl Tabs [Nitrostat] 0.4 mg SUBLINGUAL Q5M PRN #15 tab PRN Reason: Chest Pain Ranolazine [Ranexa] 500 mg PO Q12HR #60 tablet Continue Multivitamins, Thera [Multivitamin (formulary)] 1 tab PO DAILY Pioglitazone HCl/Metformin HCl [Pioglitazone-Metformin ] 1 tab PO BID Clopidogrel [Plavix] 75 mg PO DAILY 30 Days #30 tab lisinopriL [Zestril] 5 mg PO DAILY 30 Days #30 tab Albuterol Inhaler [Ventolin Hfa Inhaler] 2 puff INHALATION RT-Q4H PRN PRN Reason: Shortness Of Breath Aspirin 81 mg PO DAILY 30 Days #30 tab Magnesium Oxide [Mag-Ox] 400 mg PO DAILY 30 Days #30 tablet Atorvastatin [Lipitor] 80 mg PO DAILY Discontinued Spironolactone [Aldactone] 25 mg PO DAILY 30 Days #30 tablet Discharge Medication List Multivitamins, Thera [Multivitamin (formulary)] 1 tab PO DAILY 08/13/19 [History] Pioglitazone HCl/Metformin HCl [Pioglitazone-Metformin ] 1 tab PO BID 08/13/19 [History] Albuterol Inhaler [Ventolin Hfa Inhaler] 2 puff INHALATION RT-Q4H PRN 10/28/20 [History] Aspirin 81 mg PO DAILY 30 Days #30 tab 10/31/20 [Rx] Clopidogrel [Plavix] 75 mg PO DAILY 30 Days #30 tab 10/31/20 [Rx] Magnesium Oxide [Mag-Ox] 400 mg PO DAILY 30 Days #30 tablet 10/31/20 [Rx] lisinopriL [Zestril] 5 mg PO DAILY 30 Days #30 tab 10/31/20 [Rx] Atorvastatin [Lipitor] 80 mg PO DAILY 11/20/20 [History] Isosorbide Mononitrate ER [Imdur] 30 mg PO DAILY #30 tablet 11/23/20 [Rx] Nitroglycerin Sl Tabs [Nitrostat] 0.4 mg SUBLINGUAL Q5M PRN #15 tab 11/23/20 [Rx] Ranolazine [Ranexa] 500 mg PO Q12HR #60 tablet 11/23/20 [Rx] Follow up Appointment(s)/Referral(s): Jeremy Jurado MD [STAFF PHYSICIAN] - 12/14/20 3:15 pm [email or web address] [NON-STAFF] - ([email or web address] is the company that supplies your home O[employer].) Adam Roberto MD [Primary Care Provider] - 1-2 days (please call to schedule a followup appointment ) Patient Instructions/Handouts: Heart Attack (DC), Heart Failure (DC), Acute Kidney Injury (DC), Heart Healthy Diet (DC), COPD (Chronic Obstructive Pulmonary Disease) (DC) Discharge Disposition: HOME SELF-CARE
== END 2020-11-23 15:40 | disposition home or self-care (01) | DRG 281 ==
LOC: EC 22:21 → 3SCARD 11-20 02:30
PROVIDERS: ADMIT Internal Medicine; ATTEND Internal Medicine
DX: I21.4 Non-ST elevation (NSTEMI) myocardial infarction (principal); I13.0 Hypertensive heart and chronic kidney disease with heart failure and stage 1 through stage 4 chronic kidney disease, or unspecified chronic kidney disease; I42.9 Cardiomyopathy, unspecified; I50.22 Chronic systolic (congestive) heart failure; J96.11 Chronic respiratory failure with hypoxia; N17.9 Acute kidney failure, unspecified; E11.22 Type 2 diabetes mellitus with diabetic chronic kidney disease; E11.42 Type 2 diabetes mellitus with diabetic polyneuropathy; I25.10 Atherosclerotic heart disease of native coronary artery without angina pectoris; Z20.822 Contact with and (suspected) exposure to COVID-19; K57.30 Diverticulosis of large intestine without perforation or abscess without bleeding; I44.1 Atrioventricular block, second degree; E86.0 Dehydration; J44.9 Chronic obstructive pulmonary disease, unspecified; I25.2 Old myocardial infarction; F43.10 Post-traumatic stress disorder, unspecified; N18.9 Chronic kidney disease, unspecified; E78.5 Hyperlipidemia, unspecified; E83.42 Hypomagnesemia; E83.52 Hypercalcemia; Z79.02 Long term (current) use of antithrombotics/antiplatelets; Z79.82 Long term (current) use of aspirin; Z79.899 Other long term (current) drug therapy; Z87.891 Personal history of nicotine dependence; Z99.81 Dependence on supplemental oxygen; Z88.1 Allergy status to other antibiotic agents; Z88.2 Allergy status to sulfonamides; Z91.02 Food additives allergy status
CPT/HCPCS: 36415; 71046; 80048; 80053; 80061; 81003; 83735; 84100; 84443; 84484; 85025; 85610; 85730; 87635; 93005; 94760; 96361; 96374; 99285

== ENCOUNTER → 2021-08-16 | Day surgery (SDC) | payer MEDICARE ==
[2021-08-15 08:39] VITALS: BMI 21.9
[~2021-08-16] MED LIST: ALPRAZolam 0.25 MG TAB PO PRN; ALPRAZolam 0.5 MG TAB PO PRN; ASPIRIN 325 MG TAB PO ONE; NITROGLYCERIN SL TABS 0.4 MG TAB SUBLINGUAL PRN; SODIUM CHLORIDE 0.9% 1,000 ML in EMPTY BAG 1 BAG IV SCH
[2021-08-16 10:39] VITALS: BP 95/54; PULSE 92; RESP 16; TEMP 97.4
[2021-08-16 10:49] LABS: Basophils % (A) 1 %; Eosinophils # (A) 0.1 k/uL (0-0.7); Eosinophils % (A) 2 %; HCT 44.9 % (39.0-53.0); HGB 14.6 gm/dL (13.0-17.5); Lymphocytes # (A) 1.8 k/uL (1.0-4.8); Lymphocytes % (A) 21 %; MCH 32.4 pg (25.0-35.0); MCHC 32.4 g/dL (31.0-37.0); MCV 99.9 fL (80.0-100.0); Monocytes # (A) 0.3 k/uL (0-1.0); Monocytes % (A) 3 %; Neutrophils # (A) 6.3 k/uL (1.3-7.7); Neutrophils % (A) 73 %; Platelet Count 208 k/uL (150-450); RBC 4.49 m/uL (4.30-5.90); RDW 13.9 % (11.5-15.5); WBC 8.6 k/uL (3.8-10.6)
[2021-08-16 11:03] LABS: Calcium 10.3 mg/dL (8.4-10.2); Potassium 4.2 mmol/L (3.5-5.1)
== END ==
LOC: CATHCVL 09:49
PROVIDERS: ATTEND Internal Medicine Interventional Cardiology
DX: I25.10 Atherosclerotic heart disease of native coronary artery without angina pectoris (principal); Z53.9 Procedure and treatment not carried out, unspecified reason; Z20.822 Contact with and (suspected) exposure to COVID-19
CPT/HCPCS: 80048; 85025; 87635